=== PATIENT | female | born 1960 | race Caucasian/White ===

== ENCOUNTER 2017-12-13 13:59 | Emergency (ER) | payer OTHER ==
[~2017-12-13] VITALS: Ht 157.5 cm; Wt 64.9 kg
[2017-12-13 14:28] VITALS: BP 190/100
[2017-12-13] MEDS ORDERED: SERT50TA PO (14:55)
--- NOTE | 2017-12-13 14:55 | PHYS DOC ---
Adult General Chief Complaint Chief Complaint: MEDICATION REFILL [facility] HPI Patient is a 57 year old [f__sex] who presents with [] Review of Systems Review of Systems Constitutional: Denies fever or chills [] Eyes: Denies change in visual acuity, redness, or eye pain [] HENT: Denies nasal congestion or sore throat [] Respiratory: Denies cough or shortness of breath [] Cardiovascular: No additional information not addressed in HPI [] GI: Denies abdominal pain, nausea, vomiting, bloody stools or diarrhea [] : Denies dysuria or hematuria [] Musculoskeletal: Denies back pain or joint pain [] Integument: Denies rash or skin lesions [] Neurologic: Denies headache, focal weakness or sensory changes [] Endocrine: Denies polyuria or polydipsia [] All other systems were reviewed and found to be within normal limits, except as documented in this note. Current Medications Current Medications Current Medications Medications (Trade) Dose Ordered Sig/Ga Start Time Stop Time Status Last Admin Dose Admin Sertraline HCl (Zoloft) 50 mg 1X ONCE 12/13/17 14:45 12/13/17 14:46 UNV Allergies Allergies Allergies Coded Allergies Type Severity Reaction Last Updated Verified morphine Allergy Unknown Itching 12/13/17 Yes Physical Exam Physical Exam Constitutional: Well developed, well nourished, no acute distress, non-toxic appearance. [] HENT: Normocephalic, atraumatic, bilateral external ears normal, oropharynx moist, no oral exudates, nose normal. [] Eyes: PERRLA, EOMI, conjunctiva normal, no discharge. [] Neck: Normal range of motion, no tenderness, supple, no stridor. [] Cardiovascular:Heart rate regular rhythm, no murmur [] Lungs & Thorax: Bilateral breath sounds clear to auscultation [] Abdomen: Bowel sounds normal, soft, no tenderness, no masses, no pulsatile masses. [] Skin: Warm, dry, no erythema, no rash. [] Back: No tenderness, no CVA tenderness. [] Extremities: No tenderness, no cyanosis, no clubbing, ROM intact, no edema. [] Neurologic: Alert and oriented X 3, normal motor function, normal sensory function, no focal deficits noted. [] Psychologic: Affect normal, judgement normal, mood normal. [] EKG EKG [] Radiology/Procedures Radiology/Procedures [] Course & Med Decision Making Course & Med Decision Making Pertinent Labs and Imaging studies reviewed. (See chart for details) [] Dragon Disclaimer Dragon Disclaimer This electronic medical record was generated, in whole or in part, using a voice recognition dictation system. Departure Departure Impression: Primary Impression: Withdrawal complaint Additional Impression: Medication refill Disposition: HOME, SELF-CARE Condition: STABLE Referrals: NO PCP (PCP) Patient Instructions: Medication Refill, Emergency Department Scripts Sertraline Hcl (ZOLOFT) 50 Mg Tablet 1 TAB PO DAILY, #30 TAB 0 Refills Take 1 tab (50mg) PO daily x 1 week then increased to 2 tabs (100mg) starting second week. Prov: ADOLPH PIERSON DO 12/13/17 Problem Qualifiers ADOLPH PIERSON DO Dec 13, 2017 14:55
[2017-12-13] MEDS: SERTRALINE 50 MG TABLET. PO ONE (15:33)
== END 2017-12-13 15:33 | disposition home or self-care (01) ==
LOC: ER 13:59
DX: F19.939 Other psychoactive substance use, unspecified with withdrawal, unspecified (principal); Z76.0 Encounter for issue of repeat prescription; Z88.5 Allergy status to narcotic agent
CPT/HCPCS: 99283

== ENCOUNTER → 2017-12-30 | Outpatient (CLI) | payer OTHER ==
[2017-12-13 14:28] VITALS: BP 190/100
[~2017-12-30] MED LIST: SERT50TA PO
[2017-12-30 10:20] LABS: BASO # 0.1 x10^3/uL (0.0-0.2); BASO % 1 % (0-3); EOS # 0.2 x10^3/uL (0.0-0.7); EOS % 2 % (0-3); HEMATOCRIT 41.2 % (36.0-47.0); HEMOGLOBIN 14.1 g/dL (12.0-15.5); LYMPH # 1.9 x10^3/uL (1.0-4.8); LYMPH % 23 % (24-48); MEAN CORPUSCULAR HEMOGLOBIN 30 pg (25-35); MEAN CORPUSCULAR HGB CONC 34 g/dL (31-37); MEAN CORPUSCULAR VOLUME 87 fL (79-100); MONO # 0.4 x10^3/uL (0.0-1.1); MONO % 5 % (0-9); NEUT # 5.6 x10^3uL (1.8-7.7); NEUT % 68 % (31-73); PLATELET COUNT 279 x10^3/uL (140-400); RED BLOOD COUNT 4.71 x10^6/uL (3.50-5.40); RED CELL DISTRIBUTION WIDTH 13.2 % (11.5-14.5); WHITE BLOOD COUNT 8.2 x10^3/uL (4.0-11.0)
[2017-12-30 10:30] LABS: ALBUMIN 4.1 g/dL (3.4-5.0); ALBUMIN/GLOBULIN RATIO 1.2 (1.0-1.7); CALCIUM 9.9 mg/dL (8.5-10.1); CREATININE 0.9 mg/dL (0.6-1.0); GFR 64.8; POTASSIUM 3.5 mmol/L (3.5-5.1); TOTAL BILIRUBIN 0.5 mg/dL (0.2-1.0); TOTAL PROTEIN 7.5 g/dL (6.4-8.2)
[2017-12-30 10:32] LABS: CHOLESTEROL/HDL RATIO 6.3
[2017-12-30 22:13] LABS: HEMOGLOBIN A1C 5.7 % (4.8-5.6)
== END | disposition home or self-care (01) ==
LOC: LAB 09:51
DX: Z13.220 Encounter for screening for lipoid disorders (principal); E03.9 Hypothyroidism, unspecified; E26.9 Hyperaldosteronism, unspecified; R73.03 Prediabetes
CPT/HCPCS: 36415; 80053; 80061; 82043; 83036; 84443; 85025

== ENCOUNTER → 2018-01-10 | Outpatient (CLI) | payer OTHER ==
[2017-12-13 14:28] VITALS: BP 190/100
== END | disposition home or self-care (01) ==
LOC: LAB 10:52
PROVIDERS: ATTEND Internal Medicine Hematology & Oncology
DX: C18.9 Malignant neoplasm of colon, unspecified (principal); C78.7 Secondary malignant neoplasm of liver and intrahepatic bile duct
CPT/HCPCS: 36415; 82378

== ENCOUNTER → 2018-03-14 | Day surgery (SDC) | payer OTHER ==
[~2018-03-14] MED LIST changes: +ATOR20TA58 PO; +ESOM20CA PO; +IV RINGERS,LACTATED 1000ML 1,000 ML IV SCH; +LEVO75TA5 PO; +LIDOCAINE 1% PF 2 ML VIAL. ID PRN; +METF500T9 PO; +METO25TA4 PO; +MIDAZOLAM HCL/PF 2 MG/2 ML VIAL. IV PRN; +PROPOFOL 40 ML IV ONE; +SPIR50TA4 PO; +fentaNYL PF VIAL 100 MCG/2 ML VIAL IV PRN
[2018-03-14 09:55] VITALS: BP 108/73
--- NOTE | 2018-03-14 10:58 | CONS ---
DATE OF CONSULTATION: 03/14/2018 GASTROENTEROLOGY CONSULTATION REFERRING PHYSICIAN: Dr. Dong Velazquez and Pat Lopez. REASON FOR CONSULTATION: History of colon cancer. HISTORY OF PRESENT ILLNESS: This is a 57-year-old female whose past medical history is significant for hyperlipidemia; hypothyroidism; diabetes; hypertension; history of colon cancer, status post resection in 2004 with adjuvant chemotherapy for a liver met, which was resected as well as prior cholecystectomy, heart surgery and tubal ligation, seen for interval colon exam. Bowel habits have been regular, without diarrhea or constipation. There has been no change in her bowel habits and weight and appetite have been stable despite the cancer resection 3 years ago and hepatic resection. She is otherwise without additional complaints. PAST MEDICAL HISTORY: Hypertension, hyperlipidemia, hypothyroidism and diabetes. ALLERGIES: MORPHINE. MEDICATIONS: Include atorvastatin, Nexium, levothyroxine, metformin, metoprolol, sertraline and spironolactone. FAMILY AND SOCIAL HISTORY: She is adopted. She is a nonsmoker, a social drinker. PAST SURGICAL HISTORY: 3 and para 3, status post colon resection and hepatic resection and cardiac ablation. REVIEW OF SYSTEMS: HEENT: There is no decrease in her visual acuity issues. CARDIAC: There is a history of cardiac ablation, hypertension. ENDOCRINE: History of diabetes, hypothyroidism and hyperlipidemia. GASTROINTESTINAL: See history of present illness. HEMATOLOGIC: No bleeding, bruising or coagulopathy. DERMATOLOGIC: No skin rashes or pruritus. PSYCHIATRIC: No mood swings, depression or insomnia. NEUROLOGIC: No stroke, migraine or neuropathy. MUSCULOSKELETAL: History of osteoarthrosis. PHYSICAL EXAMINATION: GENERAL: Reveals a well-nourished, well-developed female. VITAL SIGNS: Temperature is 97.1, pulse 74 and respirations 20. HEENT EXAMINATION: Normocephalic, atraumatic. Pupils and extraocular muscles are not tested. Sclerae anicteric. NECK: Supple. LUNGS: Clear. CARDIOVASCULAR EXAMINATION: Reveals an S1 and S2, without S3, S4 or appreciable murmur. ABDOMEN: Exam reveals a soft abdomen. Normoactive bowel sounds, without appreciable hepatosplenomegaly. EXTREMITIES: Exam reveals no cyanosis, clubbing or edema. IMPRESSION: History of colon cancer. Surveillance exam is recommended at this time. Risks and benefits of the procedure were discussed with the patient, including the risk of hemorrhage or perforation. She is willing to proceed. I would like to thank Dr. Velazquez and Pat Lopez for allowing us to consult and participate in the patient's care. DAHLIA HOPE MD DR: DONAVON/cora JOB#: [id number] / [id number] Pat Santizo VINAY MD
--- NOTE | 2018-03-17 15:09 | PATHOLOGY ---
[facility] Accession Number: [id number] . 01 Material submitted: . PART A: ASCENDING COLON POLYPECTOMY PART B: CECUM MASS BIOPSIES . 01 Clinical history: . Hx colon cancer . 02 Diagnosis: A. Colon biopsies, ascending colon polyp: - Tubular adenoma. . B. Colon biopsies, cecal mass: - Tubulovillous adenoma showing focal high-grade dysplasia. See comment. (JPM:juliann; 03/17/2018) QMS/03/17/2018 . 02 Comment: Sections of the ascending colon biopsy reveal a tubular adenoma showing no high-grade dysplasia or evidence of malignancy. . Sections of the cecal mass biopsy reveal segments of tubulovillous adenoma showing focal high-grade dysplasia. Dysplastic glands are focally associated with a reactive desmoplastic stroma which is suspicious for but not diagnostic of malignancy. . The case is also examined by Dr. Yareli Benedict, who concurs with the diagnosis.The results are reported to Dr. Cornell on 03/17/18. (JPM:juliann; 03/17/2018) . 02 Electronically signed: . Sree Boogie MD, Pathologist NPI- [id number] . 01 Gross description: . A. Received in formalin labeled "Jamila Westbrook, ascending colon polyp," are 3 segments of chavez soft tissue measuring 0.9 x 0.8 x 0.3 cm in aggregate dimensions and ranging from 0.1 to 0.7 cm in maximum dimension. The specimen is submitted entirely in cassette A1. . B. Received in formalin labeled "Jamila Westbrook, cecum mass biopsy," are multiple segments of chavez soft tissue measuring 1.6 x 0.3 x 0.2 cm in aggregate dimensions. The specimen is filtered and entirely submitted in cassette B1. (TSD; 03/14/2018) TOB/TOB . 02 Pathologist provided ICD-10: D12.2, D12.0 . 02 CPT . 573510, 758676 Specimen Comment: A courtesy copy of this report has been sent to Specimen Comment: [phone]. Specimen Comment: Report sent to Performed at: 01 [facility] [address], [place] [id number] MD Jordan Wellington MD Phone: [phone] Performed at: 02 [facility] [address] [place], [place] [id number] MD Sree Boogie MD Phone: [phone]
== END | disposition home or self-care (01) ==
LOC: SURG 07:49
PROVIDERS: ATTEND Internal Medicine Gastroenterology
DX: Z12.11 Encounter for screening for malignant neoplasm of colon (principal); D12.2 Benign neoplasm of ascending colon; D12.0 Benign neoplasm of cecum; K64.0 First degree hemorrhoids; Z88.5 Allergy status to narcotic agent; I10 Essential (primary) hypertension; E78.5 Hyperlipidemia, unspecified; E03.9 Hypothyroidism, unspecified; E11.9 Type 2 diabetes mellitus without complications; Z85.038 Personal history of other malignant neoplasm of large intestine; Z79.899 Other long term (current) drug therapy; Z72.89 Other problems related to lifestyle; Z90.49 Acquired absence of other specified parts of digestive tract; Z98.890 Other specified postprocedural states; Z98.51 Tubal ligation status; Z79.84 Long term (current) use of oral hypoglycemic drugs
CPT/HCPCS: 45380; 45385; 82962; 88305; J2704

== ENCOUNTER → 2018-04-04 | Outpatient (CLI) | payer OTHER ==
[2018-03-14 09:55] VITALS: BP 108/73
[~2018-04-04] MED LIST changes: +IOHEXOL 240 MG/ML 50ML VIAL. PO ONE; +IOHEXOL 300 MG/ML 100ML VIAL. IV ONE; -IV RINGERS,LACTATED 1000ML 1,000 ML IV SCH; -LIDOCAINE 1% PF 2 ML VIAL. ID PRN; -MIDAZOLAM HCL/PF 2 MG/2 ML VIAL. IV PRN; +MULT-245 PO; -PROPOFOL 40 ML IV ONE; +SERT100T PO; -fentaNYL PF VIAL 100 MCG/2 ML VIAL IV PRN
[2018-04-04 09:31] LABS: CREATININE 0.9 mg/dL (0.6-1.0); GFR 64.8
--- NOTE | 2018-04-04 16:19 | RAD ---
CT study of the abdomen and pelvis with contrast Clinical indications: Cecal mass. TECHNIQUE: After IV infusion of 75 cc of Omnipaque 300, helical CT scanning of the abdomen and pelvis was performed. GI contrast was administered per mouth. PQRS compliance Statement One or more of the following individualized dose reduction techniques were utilized for this study: 1. Automated exposure control 2. Adjustment of the mA and/or kV according to patient size 3. Use of iterative reconstruction technique COMPARISON: None available. FINDINGS: Resection of the right lobe liver is seen. The rest of the liver is unremarkable. Spleen is not enlarged. Pancreas is unremarkable. No biliary ductal dilatation is seen. The gallbladder is surgically absent. No adrenal mass is seen. Bilateral renal cysts are seen. No hydronephrosis or hydroureter is evident on either side. Urinary bladder is not abnormally distended. No focal aneurysmal dilatation of the abdominal aorta is seen. No enlarged abdominal or pelvic lymphadenopathy is seen. Bilateral ovarian cysts are seen. Cyst of the left ovary measures 1.6 cm in size. Cyst of the right ovary measures 3.2 cm in size. No uterine mass or fibroid is seen. A low anastomosis of the rectal region is seen. No inflammatory change or free fluid or abscess is seen here. No mesenteric edema or free fluid or free air is seen throughout the abdomen. There is diffuse wall thickening of the colon. Lipoma of the ileocecal valve is seen. There is a round filling defect of the medial posterior wall of the cecum which measures 2.9 cm in greatest dimension. No pericolonic extension is seen. Terminal ileum is unremarkable. No obstructive bowel pattern is seen. Midline abdominal wall protrusion is evident but the overlying fascia appears intact. No lung base consolidation is evident. Grade 1-2 anterolisthesis of L5-S1 is seen secondary to bilateral spondylolysis of L5. No lytic process is seen. IMPRESSION: 2.9 cm filling defect or mass of the cecum is seen without pericolonic extension. In addition, there is diffuse wall thickening of the colon and rectosigmoid region. This could be due to incomplete distention or colitis. Surgical resection of the right lobe of the liver. Rest of the liver is unremarkable. Bilateral ovarian cysts. Bilateral spondylolysis of L5 resulting in grade 1-2 anterolisthesis of L5-S1. Electronically signed by: Ignacio Trevizo MD (04/04/2018 4:14 PM) [place] [id number]
== END | disposition home or self-care (01) ==
LOC: CT 08:39
PROVIDERS: ATTEND Internal Medicine Gastroenterology
DX: K63.89 Other specified diseases of intestine (principal); N83.202 Unspecified ovarian cyst, left side; N83.201 Unspecified ovarian cyst, right side; M43.17 Spondylolisthesis, lumbosacral region; N28.1 Cyst of kidney, acquired; R93.3 Abnormal findings on diagnostic imaging of other parts of digestive tract
CPT/HCPCS: 36415; 74177; 82565; Q9966; Q9967

== ENCOUNTER → 2018-04-07 | Outpatient (CLI) | payer OTHER ==
[2018-03-14 09:55] VITALS: BP 108/73
[~2018-04-07] MED LIST changes: -IOHEXOL 240 MG/ML 50ML VIAL. PO ONE; -IOHEXOL 300 MG/ML 100ML VIAL. IV ONE
[2018-04-07 12:18] LABS: BASO # 0.1 x10^3/uL (0.0-0.2); BASO % 1 % (0-3); EOS # 0.2 x10^3/uL (0.0-0.7); EOS % 3 % (0-3); HEMATOCRIT 38.6 % (36.0-47.0); HEMOGLOBIN 13.2 g/dL (12.0-15.5); LYMPH # 2.4 x10^3/uL (1.0-4.8); LYMPH % 31 % (24-48); MEAN CORPUSCULAR HEMOGLOBIN 30 pg (25-35); MEAN CORPUSCULAR HGB CONC 34 g/dL (31-37); MEAN CORPUSCULAR VOLUME 87 fL (79-100); MONO # 0.5 x10^3/uL (0.0-1.1); MONO % 6 % (0-9); NEUT # 4.5 x10^3uL (1.8-7.7); NEUT % 59 % (31-73); PLATELET COUNT 277 x10^3/uL (140-400); RED BLOOD COUNT 4.42 x10^6/uL (3.50-5.40); RED CELL DISTRIBUTION WIDTH 13.5 % (11.5-14.5); WHITE BLOOD COUNT 7.8 x10^3/uL (4.0-11.0)
[2018-04-07 12:41] LABS: ALBUMIN 3.9 g/dL (3.4-5.0); CALCIUM 9.9 mg/dL (8.5-10.1); CREATININE 0.9 mg/dL (0.6-1.0); GFR 64.8; POTASSIUM 3.7 mmol/L (3.5-5.1)
== END | disposition home or self-care (01) ==
LOC: SURGPAT 11:30
PROVIDERS: ATTEND Surgery
DX: Z01.818 Encounter for other preprocedural examination (principal); K63.89 Other specified diseases of intestine
CPT/HCPCS: 36415; 80048; 82040; 85025

== ENCOUNTER → 2018-05-08 | Outpatient (CLI) | payer OTHER ==
[2018-04-17 11:00] VITALS: BP 116/77
[2018-05-08 15:22] LABS: BASO % 1 % (0-3); EOS # 0.3 x10^3/uL (0.0-0.7); EOS % 3 % (0-3); HEMATOCRIT 38.6 % (36.0-47.0); HEMOGLOBIN 12.9 g/dL (12.0-15.5); LYMPH # 2.7 x10^3/uL (1.0-4.8); LYMPH % 27 % (24-48); MEAN CORPUSCULAR HEMOGLOBIN 29 pg (25-35); MEAN CORPUSCULAR HGB CONC 34 g/dL (31-37); MEAN CORPUSCULAR VOLUME 86 fL (79-100); MONO # 0.7 x10^3/uL (0.0-1.1); MONO % 7 % (0-9); NEUT # 6.3 x10^3uL (1.8-7.7); NEUT % 63 % (31-73); PLATELET COUNT 431 x10^3/uL (140-400); RED BLOOD COUNT 4.48 x10^6/uL (3.50-5.40); RED CELL DISTRIBUTION WIDTH 13.3 % (11.5-14.5)
[2018-05-08 15:53] LABS: CALCIUM 9.5 mg/dL (8.5-10.1); CREATININE 0.9 mg/dL (0.6-1.0); GFR 64.5; TOTAL BILIRUBIN 0.5 mg/dL (0.2-1.0); TOTAL PROTEIN 8.1 g/dL (6.4-8.2)
[2018-05-08 16:05] LABS: POTASSIUM 2.5 mmol/L (3.5-5.1)
== END | disposition home or self-care (01) ==
LOC: LAB 14:57
PROVIDERS: ATTEND Internal Medicine Hematology & Oncology
DX: C18.8 Malignant neoplasm of overlapping sites of colon (principal)
CPT/HCPCS: 36415; 80053; 82378; 85025

== ENCOUNTER 2018-09-22 07:27 | Emergency (ER) | payer OTHER ==
[~2018-09-22] VITALS: Ht 157.5 cm; Wt 58.1 kg
[2018-09-22 07:30] VITALS: BP 144/82
[2018-09-22] MEDS ORDERED: IBUPROFEN 200 MG TABLET. PO ONE (07:45)
--- NOTE | 2018-09-22 07:57 | PHYS DOC ---
Past Medical History Past Medical History: Cancer Additional Past Medical Histor: HYPERALDOSTERONISM, TACHYCARDIA, PREDIABETIC Past Surgical History: Cancer Surgery, Cholecystectomy, Tubal ligation Additional Past Surgical Histo: LIVER AND COLON RESECTION, COLOSTOMY AND REVERSAL Alcohol Use: None Drug Use: None Adult General Chief Complaint Chief Complaint: MECHANICAL FALL HPI HPI Patient is a 58 year old female who presents with complaining of a fall. 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 Patient complaining of pain in right wrist and left knee and accepted the pain 07/18. Patient denies focal neuro deficit, nausea and vomiting, dizziness. Patient is up-to-date with tetanus immunization. Review of Systems Review of Systems Constitutional: Denies fever or chills [] Eyes: Denies change in visual acuity, redness, or eye pain [] HENT: Denies nasal congestion or sore throat [] Respiratory: Denies cough or shortness of breath [] Cardiovascular: No additional information not addressed in HPI [] GI: Denies abdominal pain, nausea, vomiting, bloody stools or diarrhea [] : Denies dysuria or hematuria [] Musculoskeletal: Denies back pain, reports joint pain [] Integument: Denies rash or skin lesions [] Neurologic: Denies headache, focal weakness or sensory changes [] Endocrine: Denies polyuria or polydipsia [] All other systems were reviewed and found to be within normal limits, except as documented in this note. Current Medications Current Medications Current Medications Medications (Trade) Dose Ordered Sig/Ga Start Time Stop Time Status Last Admin Dose Admin Ibuprofen (Motrin) 600 mg 1X ONCE 09/22/18 07:45 09/22/18 07:47 DC 09/22/18 07:51 600 MG Allergies Allergies Allergies Coded Allergies Type Severity Reaction Last Updated Verified morphine Allergy Intermediate Itching 04/14/18 Yes Physical Exam Physical Exam Constitutional: Well developed, well nourished, mild distress, non-toxic appearance. [] HENT: Normocephalic, atraumatic. Eyes: PERRLA, EOMI, conjunctiva normal, no discharge. [] Neck: Normal range of motion, no tenderness, supple, no stridor. [] Cardiovascular:Heart rate regular rhythm, no murmur [] Lungs & Thorax: Bilateral breath sounds clear to auscultation [] Skin: Warm, dry, no erythema, no rash. [] Back: No tenderness, no CVA tenderness. [] Extremities: Right wrist with mild contusion in volar side of volar side of hypothenar area with painful range of motion without edema or deformity, left knee with contusion and erythema without edema or deformity, normal range of motion Neurologic: Alert and oriented X 3, normal motor function, normal sensory function, no focal deficits noted. [] Psychologic: Affect normal, judgement normal, mood normal. [] Current Patient Data Vital Signs Vital Signs Date Time Temp Pulse Resp B/P (MAP) Pulse Ox O2 Delivery O2 Flow Rate FiO2 09/22/18 07:30 98.6 59 16 144/82 (102) 99 Room Air 98.6 EKG EKG [] Radiology/Procedures Radiology/Procedures [][address] [address] IMAGING REPORT Signed PATIENT: BALBIR FELTON ACCOUNT: [id number] : 1960 LOCATION: ER AGE: 58 SEX: F EXAM STATUS: REG ER ORD. PHYSICIAN: JEFFREY GREEN MD REASON: FALL, LEFT KNEE TENDERNESS PROCEDURE: KNEE LEFT 4V Indication:Fall. Left knee tenderness. TECHNIQUE: 3 views of the left knee COMPARISON:None FINDINGS/ impression: No acute fracture or dislocation. No joint effusion. Mild tricompartmental osteoarthritis. Electronically signed by: Landon Higuera DO (09/22/2018 8:11 AM) [facility] DICTATED and SIGNED BY: LANDON HIGUERA DO DATE: 09/22/[address] [id number] IMAGING REPORT Signed PATIENT: BALBIR FELTON ACCOUNT: [id number] : 1960 LOCATION: ER AGE: 58 SEX: F EXAM STATUS: REG ER ORD. PHYSICIAN: JEFFREY GREEN MD REASON: FALL, RIGHT WRIST PAIN PROCEDURE: WRIST 3V RIGHT Indication:Fall. Right wrist pain. TECHNIQUE: 3 views of right wrist COMPARISON: None FINDINGS/ impression: Most likely old fracture of the ulnar styloid process. No acute fracture or dislocation. Soft tissue Edema is seen of the rest. Electronically signed by: Landon Higuera DO (09/22/2018 8:11 AM) [facility] DICTATED and SIGNED BY: LANDON HIGUERA DO DATE: 09/22/18 0811 Course & Med Decision Making Course & Med Decision Making Pertinent Imaging studies reviewed. (See chart for details) Evaluation of patient in ER showed 58-year-old female patient with a fall at work and injury to right wrist and left knee. X-ray showed old styloid fracture of ulna without acute fracture. Left knee x-ray was unremarkable. Patient treated with ibuprofen in ER and velcro wrist splint and left the Jame wrap was applied. Dragon Disclaimer Dragon Disclaimer This electronic medical record was generated, in whole or in part, using a voice recognition dictation system. Departure Departure Impression: Primary Impression: Right wrist sprain Additional Impression: Left knee sprain Disposition: 01 HOME, SELF-CARE (@0835) Condition: IMPROVED Referrals: LISA DICKERSON BUSINESS SALES CONSULTANT (PCP) Patient Instructions: Knee Sprain, Wrist Sprain with [facility] Additional Instructions: Drink plenty of liquids Follow-up with your primary care physician in 3-5 days Return to ER if not getting better Apply ice on the affected area Take Tylenol or ibuprofen as needed for pain Problem Qualifiers Primary Impression: Right wrist sprain Encounter type: initial encounter Qualified Codes: S63.501A - Unspecified sprain of right wrist, initial encounter Additional Impression: Left knee sprain Encounter type: initial encounter Involved ligament of knee: unspecified ligament Qualified Codes: S83.92XA - Sprain of unspecified site of left knee, initial encounter JEFFREY GREEN MD Sep 22, 2018 07:57
--- NOTE | 2018-09-22 08:14 | RAD ---
Indication:Fall. Right wrist pain. TECHNIQUE: 3 views of right wrist COMPARISON: None FINDINGS/ impression: Most likely old fracture of the ulnar styloid process. No acute fracture or dislocation. Soft tissue Edema is seen of the rest. Electronically signed by: Landon Higuera DO (09/22/2018 8:11 AM) [facility]
--- NOTE | 2018-09-22 08:14 | RAD ---
Indication:Fall. Left knee tenderness. TECHNIQUE: 3 views of the left knee COMPARISON:None FINDINGS/ impression: No acute fracture or dislocation. No joint effusion. Mild tricompartmental osteoarthritis. Electronically signed by: Landon Higuera DO (09/22/2018 8:11 AM) [facility]
== END 2018-09-22 08:35 | disposition home or self-care (01) ==
LOC: ER 07:27
DX: S63.501A Unspecified sprain of right wrist, initial encounter (principal); S83.92XA Sprain of unspecified site of left knee, initial encounter; Z88.5 Allergy status to narcotic agent; W01.0XXA Fall on same level from slipping, tripping and stumbling without subsequent striking against object, initial encounter; Y93.89 Activity, other specified; Y92.89 Other specified places as the place of occurrence of the external cause; Y99.8 Other external cause status
CPT/HCPCS: 29125; 73110; 73564; 99284

== ENCOUNTER → 2018-10-08 | Outpatient (CLI) | payer OTHER ==
[2018-09-22 07:30] VITALS: BP 144/82
[2018-10-08 10:38] LABS: BASO # 0.1 x10^3/uL (0.0-0.2); BASO % 1 % (0-3); EOS # 0.2 x10^3/uL (0.0-0.7); EOS % 2 % (0-3); HEMATOCRIT 37.4 % (36.0-47.0); HEMOGLOBIN 12.7 g/dL (12.0-15.5); LYMPH # 2.2 x10^3/uL (1.0-4.8); LYMPH % 26 % (24-48); MEAN CORPUSCULAR HEMOGLOBIN 30 pg (25-35); MEAN CORPUSCULAR HGB CONC 34 g/dL (31-37); MEAN CORPUSCULAR VOLUME 89 fL (79-100); MONO # 0.5 x10^3/uL (0.0-1.1); MONO % 6 % (0-9); NEUT # 5.5 x10^3/uL (1.8-7.7); NEUT % 66 % (31-73); PLATELET COUNT 263 x10^3/uL (140-400); RED BLOOD COUNT 4.22 x10^6/uL (3.50-5.40); RED CELL DISTRIBUTION WIDTH 14.1 % (11.5-14.5); WHITE BLOOD COUNT 8.4 x10^3/uL (4.0-11.0)
[2018-10-08 11:18] LABS: ALBUMIN 3.6 g/dL (3.4-5.0); CALCIUM 8.8 mg/dL (8.5-10.1); CREATININE 0.9 mg/dL (0.6-1.0); TOTAL PROTEIN 7.3 g/dL (6.4-8.2)
[2018-10-08 11:19] LABS: CHOLESTEROL/HDL RATIO 4.1; GFR 64.5; POTASSIUM 3.7 mmol/L (3.5-5.1); TOTAL BILIRUBIN 0.4 mg/dL (0.2-1.0)
== END | disposition home or self-care (01) ==
LOC: LAB 10:03
PROVIDERS: ATTEND Nurse Practitioner Family
DX: E78.5 Hyperlipidemia, unspecified (principal)
CPT/HCPCS: 36415; 80053; 80061; 84443; 85025

== ENCOUNTER → 2018-10-08 | Outpatient (CLI) | payer OTHER ==
[2018-09-22 07:30] VITALS: BP 144/82
--- NOTE | 2018-10-08 11:58 | RAD ---
DATE: October 08, 2018 EXAM: MAMMO WAYNE SCREENING BILATERAL HISTORY: Screening study. COMPARISON: March 29, 2016 This study was interpreted with the benefit of Computerized Aided Detection (CAD). 2-D digital mammographic views of both breasts were performed in the CC and MLO projections. 3-D digital tomosynthesis images of both breasts were performed in the CC and MLO projections and reviewed on a computer workstation. FINDINGS: Breast Density: SCATTERED The breast parenchyma shows scattered fibroglandular densities. Breast parenchyma level B.. There are no dominant suspicious masses, suspicious microcalcifications or evidence of architectural distortion. Bilateral breast nodularity is stable. IMPRESSION: No mammographic indicators for malignancy. BI-RADS CATEGORY: 2 BENIGN FINDING RECOMMENDED FOLLOW-UP: 12M 12 MONTH FOLLOW-UP PQRS compliance statement: Patient information was entered into a reminder system with a target due date October 10, 2019 for the next mammogram. Mammography is a sensitive method for finding small breast cancers, but it does not detect them all and is not a substitute for careful clinical examination. A negative mammogram does not negate a clinically suspicious finding and should not result in delay in biopsying a clinically suspicious abnormality. "Our facility is accredited by the [employer] Mammography Program." The patient's breast density may affect the ability of mammography to detect breast cancer. There are 4 categories of breast density, A, B, C and D. Breast density A means that most of the breast tissue is replaced with adipose tissue and therefore is not dense. Breast density B means that the breast tissue is mildly dense and scattered. Breast density C means that the breast tissue is heterogeneously dense. Breast density D means that the breast tissue is very dense. Breast densities especially C and D may decrease the sensitivity of mammography to detect breast cancer. Therefore, the patient may benefit from 3-D breast mammography (3D breast tomography) as a part of their screening mammogram. Insurance may or may not pay for this additional imaging. The patient's breast density based on today's mammogram is category B.
== END | disposition home or self-care (01) ==
LOC: LAB 09:55
PROVIDERS: ATTEND Internal Medicine Hematology & Oncology
DX: Z12.31 Encounter for screening mammogram for malignant neoplasm of breast (principal); C18.9 Malignant neoplasm of colon, unspecified; C78.7 Secondary malignant neoplasm of liver and intrahepatic bile duct
CPT/HCPCS: 77063; 77067; 82378

== ENCOUNTER → 2018-10-15 | Outpatient (CLI) | payer OTHER ==
[2018-09-22 07:30] VITALS: BP 144/82
[~2018-10-15] MED LIST changes: +METF500T11 PO; -METF500T9 PO
== END | disposition home or self-care (01) ==
LOC: SPEC 14:47
PROVIDERS: ATTEND Nurse Practitioner Family
DX: Z12.4 Encounter for screening for malignant neoplasm of cervix (principal)
CPT/HCPCS: 88175

== ENCOUNTER → 2019-04-10 | Day surgery (SDC) | payer OTHER ==
[~2019-04-10] MED LIST changes: +IV RINGERS,LACTATED 1000ML 1,000 ML IV ONE; +LIDOCAINE 2% PF 5 ML VIAL. ONE; +PANT40TA77 PO; +PROPOFOL 20 ML IV ONE
--- NOTE | 2019-04-10 08:21 | HP ---
ADMIT DATE: REASON: History of cecal polyp with high-grade dysplasia/cancer and recurrent diarrhea. HISTORY OF PRESENT ILLNESS: A 58-year-old female with past medical history significant for hypothyroidism, hypertension, gastroesophageal reflux disease as well as colon cancer, is seen for interval colonoscopy. She does relate having persistent diarrhea despite pancreatic enzymes, on bile acid sequestrant therapy and Xifaxan. Biopsies were requested to further assess the diarrhea at the time of the interval colon exam. PAST MEDICAL HISTORY: Colon cancer, GERD, hypothyroidism and hypertension. ALLERGIES: MORPHINE. MEDICATIONS: Include levothyroxine, metoprolol, multivitamin, pantoprazole, Zoloft, and spironolactone. SOCIAL HISTORY: She is a nonsmoker, social drinker. PAST SURGICAL HISTORY: Status post tubal ligation, cecal resection, cholecystectomy and hernia repair. REVIEW OF SYSTEMS: Per records. PHYSICAL EXAMINATION: GENERAL: Reveals a well-nourished, well-developed female who is alert, cooperative, in no acute distress. VITAL SIGNS: Temperature 98.1, pulse 75, respirations 20. LUNGS: Clear. CARDIOVASCULAR: Reveals an S1, S2 without S3, S4 or appreciable murmur. ABDOMEN: Reveals a soft abdomen, normal bowel sounds, without appreciable hepatosplenomegaly. Multiple surgical incisions. EXTREMITIES: Reveals no cyanosis, clubbing or edema. IMPRESSION: Diarrhea, status post colon cancer resection, unresponsive to bile acid sequestrant therapy, pancreatic enzymes and Xifaxan. Collagenous and/or inflammatory colitis certainly are in the differential; therefore, recommend biopsies. Risks and benefits of procedure including risk of hemorrhage and perforation requiring operation were discussed. The patient is willing to proceed at this time. DAHLIA HOPE MD DR: DONAVON/cora JOB#: [id number] / [id number]
[2019-04-10 08:31] VITALS: BP 125/79
--- NOTE | 2019-04-13 15:07 | PATHOLOGY ---
[facility] Accession Number: [id number] . 01 Material submitted: . colon - RANDOM COLON BIOPSIES . 01 Clinical history: . History of colon cancer . 02 Diagnosis: Colonic mucosa, random colon biopsies: - No significant pathologic abnormalities. (JPM:[facility] 04/13/2019) [facility] 04/13/2019 0920 Local . 02 Comment: Sections of the random colon biopsy reveal multiple segments of colonic mucosa showing focal reactive superficial epithelial hyperplastic changes. There are a few mucosal-associated lymphoid aggregates. There is no evidence of a chronic destructive colitis, lymphocytic colitis, or collagenous colitis. (JPM:[facility] 04/13/2019) . 02 Electronically signed: . Sree Boogie MD, Pathologist NPI- [id number] . 01 Gross description: . The specimen is received in formalin, labeled "Jamila Dariana, random colon biopsies". Received are multiple (greater than 10) segments of pale chavez soft tissue ranging in size from 0.2 to 0.7 cm in maximum dimensions. The specimen is submitted entirely in cassette A1. (CAA; 04/10/2019) QAC/QAC 04/10/2019 1730 Local . 02 Pathologist provided ICD-10: Z12.11, Z85.038 . 02 CPT . 805133 Specimen Comment: A courtesy copy of this report has been sent to [phone] Specimen Comment: Report sent to Specimen Comment: A duplicate report has been generated due to demographic updates. Performed at: 01 [facility] [address], [place] [id number] MD Jordan Wellington MD Phone: [phone] Performed at: 02 [facility] [address] [place], [place] [id number] MD Sree Boogie MD Phone: [phone]
== END | disposition home or self-care (01) ==
LOC: ENDOS 06:46
PROVIDERS: ATTEND Internal Medicine Gastroenterology
DX: R19.7 Diarrhea, unspecified (principal); K64.0 First degree hemorrhoids; K63.89 Other specified diseases of intestine; K21.9 Gastro-esophageal reflux disease without esophagitis; E03.9 Hypothyroidism, unspecified; I10 Essential (primary) hypertension; Z88.8 Allergy status to other drugs, medicaments and biological substances; Z79.899 Other long term (current) drug therapy; Z98.51 Tubal ligation status; Z90.49 Acquired absence of other specified parts of digestive tract; Z85.068 Personal history of other malignant neoplasm of small intestine
CPT/HCPCS: 45380; 88305; J2001; J2704

== ENCOUNTER → 2019-08-21 | Outpatient (CLI) | payer OTHER ==
[2019-04-10 08:31] VITALS: BP 125/79
[~2019-08-21] MED LIST changes: -IV RINGERS,LACTATED 1000ML 1,000 ML IV ONE; -LIDOCAINE 2% PF 5 ML VIAL. ONE; +METF-658 PO; -METF500T11 PO; -PROPOFOL 20 ML IV ONE
--- NOTE | 2019-08-21 17:11 | RAD ---
RIGHT HAND, VIEWS 3 Indication: Prolonged pain on 1st digit and wrist, no injury Findings: There is no acute fracture or dislocation. Bony articulations are normal. There is no bony erosion. Tiny well-corticated bone fragment at the tip of the ulnar styloid could be due to old injury. Punctate ossific densities of the third and fifth DIP joints are likely incidental. Mineralization is normal. There is no radiographically apparent soft tissue swelling or radiopaque foreign body. IMPRESSION: No acute bone abnormality. Electronically signed by: Steven Montesinos MD (08/21/2019 5:08 PM) [facility]
== END | disposition home or self-care (01) ==
LOC: RAD 16:31
PROVIDERS: ATTEND Internal Medicine
DX: S63.641A Sprain of metacarpophalangeal joint of right thumb, initial encounter (principal); X58.XXXA Exposure to other specified factors, initial encounter; Y93.89 Activity, other specified; Y92.89 Other specified places as the place of occurrence of the external cause; Y99.8 Other external cause status
CPT/HCPCS: 73130

== ENCOUNTER → 2019-09-24 | Outpatient (CLI) | payer OTHER ==
[2019-04-10 08:31] VITALS: BP 125/79
== END | disposition home or self-care (01) ==
LOC: LAB 13:35
PROVIDERS: ATTEND Internal Medicine Pulmonary Disease
DX: Z20.828 Contact with and (suspected) exposure to other viral communicable diseases (principal)
CPT/HCPCS: C9803; U0003

== ENCOUNTER → 2019-10-16 | Outpatient (CLI) | payer OTHER ==
[2019-04-10 08:31] VITALS: BP 125/79
[2019-10-16 11:46] LABS: BASO # 0.1 x10^3/uL (0.0-0.2); BASO % 1 % (0-3); EOS # 0.2 x10^3/uL (0.0-0.7); EOS % 2 % (0-3); HEMATOCRIT 41.3 % (36.0-47.0); HEMOGLOBIN 14.3 g/dL (12.0-15.5); LYMPH # 2.3 x10^3/uL (1.0-4.8); LYMPH % 30 % (24-48); MEAN CORPUSCULAR HEMOGLOBIN 31 pg (25-35); MEAN CORPUSCULAR HGB CONC 35 g/dL (31-37); MEAN CORPUSCULAR VOLUME 89 fL (79-100); MONO # 0.5 x10^3/uL (0.0-1.1); MONO % 7 % (0-9); NEUT # 4.5 x10^3/uL (1.8-7.7); NEUT % 60 % (31-73); PLATELET COUNT 297 x10^3/uL (140-400); RED BLOOD COUNT 4.64 x10^6/uL (3.50-5.40); RED CELL DISTRIBUTION WIDTH 12.9 % (11.5-14.5); WHITE BLOOD COUNT 7.6 x10^3/uL (4.0-11.0)
[2019-10-16 11:59] LABS: ALBUMIN 4.4 g/dL (3.4-5.0); ALBUMIN/GLOBULIN RATIO 1.3 (1.0-1.7); CALCIUM 9.3 mg/dL (8.5-10.1); GFR 56.9; TOTAL BILIRUBIN 0.7 mg/dL (0.2-1.0); TOTAL PROTEIN 7.9 g/dL (6.4-8.2)
== END | disposition home or self-care (01) ==
LOC: LAB 11:04
PROVIDERS: ATTEND Internal Medicine Hematology & Oncology
DX: Z85.038 Personal history of other malignant neoplasm of large intestine (principal)
CPT/HCPCS: 80053; 82378; 85025

== ENCOUNTER → 2019-10-16 | Outpatient (CLI) | payer OTHER ==
[2019-04-10 08:31] VITALS: BP 125/79
[2019-10-16 11:41] LABS: BASO # 0.1 x10^3/uL (0.0-0.2); BASO % 1 % (0-3); EOS # 0.2 x10^3/uL (0.0-0.7); EOS % 2 % (0-3); HEMATOCRIT 41.4 % (36.0-47.0); HEMOGLOBIN 14.2 g/dL (12.0-15.5); LYMPH # 2.4 x10^3/uL (1.0-4.8); LYMPH % 32 % (24-48); MEAN CORPUSCULAR HEMOGLOBIN 31 pg (25-35); MEAN CORPUSCULAR HGB CONC 34 g/dL (31-37); MEAN CORPUSCULAR VOLUME 89 fL (79-100); MONO # 0.5 x10^3/uL (0.0-1.1); MONO % 7 % (0-9); NEUT # 4.5 x10^3/uL (1.8-7.7); NEUT % 58 % (31-73); PLATELET COUNT 304 x10^3/uL (140-400); RED BLOOD COUNT 4.64 x10^6/uL (3.50-5.40); RED CELL DISTRIBUTION WIDTH 12.9 % (11.5-14.5); WHITE BLOOD COUNT 7.7 x10^3/uL (4.0-11.0)
[2019-10-16 12:00] LABS: ALBUMIN 4.4 g/dL (3.4-5.0); ALBUMIN/GLOBULIN RATIO 1.1 (1.0-1.7); CALCIUM 9.3 mg/dL (8.5-10.1); GFR 56.9; POTASSIUM 3.8 mmol/L (3.5-5.1); TOTAL BILIRUBIN 0.7 mg/dL (0.2-1.0); TOTAL PROTEIN 8.3 g/dL (6.4-8.2)
[2019-10-16 12:02] LABS: CHOLESTEROL/HDL RATIO 4.2
[2019-10-17 00:09] LABS: HEMOGLOBIN A1C 5.2 % (4.8-5.6)
== END | disposition home or self-care (01) ==
LOC: LAB 11:09
PROVIDERS: ATTEND Nurse Practitioner Family
DX: Z13.1 Encounter for screening for diabetes mellitus (principal); Z13.220 Encounter for screening for lipoid disorders; E03.9 Hypothyroidism, unspecified; I10 Essential (primary) hypertension
CPT/HCPCS: 36415; 80053; 80061; 83036; 84443; 85025

== ENCOUNTER → 2019-11-10 | Outpatient (CLI) | payer OTHER ==
[2019-04-10 08:31] VITALS: BP 125/79
[~2019-11-10] MED LIST changes: +EZET10TA48 PO
== END | disposition home or self-care (01) ==
LOC: LAB 13:43
PROVIDERS: ATTEND Surgery
DX: Z01.812 Encounter for preprocedural laboratory examination (principal); Z20.828 Contact with and (suspected) exposure to other viral communicable diseases; K43.2 Incisional hernia without obstruction or gangrene
CPT/HCPCS: U0003-CS

== ENCOUNTER 2019-11-13 06:02 | Inpatient (IN) | payer OTHER ==
[~2019-11-13] VITALS: Ht 157.5 cm; Wt 63.1 kg
[2019-11-13] VITALS (11 sets, daily range): BP systolic 87–112; BP diastolic 42–69
[~2019-11-13 06:02] MED LIST changes: +ACETAMINOPHEN 500 MG TABLET PO PRN; -EZET10TA48 PO; +ceFAZolin SODIUM IV Push 1 GM VIAL. IVP PRN
[2019-11-13] MEDS ORDERED: ROCURONIUM 50 MG/5 ML VIAL. ONE (06:37)
[2019-11-13] MEDS ORDERED: SUCCINYLCHOLINE 200 MG/10 ML VIAL. ONE (06:37)
[2019-11-13] MEDS ORDERED: ONDANSETRON PF 4 MG/2 ML VIAL. ONE (06:38)
[2019-11-13] MEDS ORDERED: DEXAMETHASONE SOD PHOS 20 MG/5 ML VIAL. ONE (06:38)
[2019-11-13] MEDS ORDERED: LIDOCAINE 2% PF 5 ML VIAL. ONE (06:38)
[2019-11-13] MEDS ORDERED: PROPOFOL 10 MG/ML (20ML) VIAL. IV ONE (06:38)
[2019-11-13] MEDS ORDERED: BUPIVACAINE-EPI 0.5%-1:200000 MPF 30 ML VIAL. ONE (06:52)
[2019-11-13] MEDS ORDERED: MINERAL OIL for SURGERY 10 ML VIAL. MC ONE (06:52)
[2019-11-13] MEDS ORDERED: fentaNYL PF VIAL 100 MCG/2 ML VIAL IV PRN (07:00)
[2019-11-13] MEDS ORDERED: ONDANSETRON PF 4 MG/2 ML VIAL. IV PRN (07:00)
[2019-11-13] MEDS ORDERED: IV RINGERS,LACTATED 1000ML 1,000 ML IV SCH (07:00)
[2019-11-13] MEDS ORDERED: fentaNYL PF VIAL 100 MCG/2 ML VIAL ONE ×3 (07:00→10:59)
[2019-11-13] MEDS ORDERED: PROCHLORPERAZINE 10 MG/2 ML VIAL. IV PRN (07:00)
[2019-11-13] MEDS ORDERED: HYDROmorphone 2 MG/ML VIAL ONE (09:12)
[2019-11-13] MEDS ORDERED: PHENYLEPHRINE in 0.9% NACL PF 1 MG/10 ML SYRINGE. IV ONE (09:18)
[2019-11-13] MEDS ORDERED: ePHEDrine PF IN SALINE 50 MG/10 ML SYRINGE. IV ONE (09:18)
[2019-11-13] MEDS ORDERED: SEVOFLURANE 61 TO 120 MINUTES. IH ONE (09:18)
[2019-11-13] MEDS: IV DEXTROSE 5%-LACT RINGERS 1,000 ML IV SCH ×2 (09:36→22:01)
--- NOTE | 2019-11-13 09:36 | PDOC4 ---
Operative Note Operative Note Date: November 13, 2019 at 09 31 Preoperative diagnosis: Recurrent incisional hernia Postoperative diagnosis: Same Procedure: Robotic assisted laparoscopic lysis of adhesions and repair of small bowel enterotomy with repair of recurrent incisional hernia open Surgeon: Harris Specimen: Hernia sac Dictation: Patient is a 59-year-old female is had multiple abdominal surgeries for colon resection and then a incisional hernia repair with mesh subsequently has developed a recurrence of her hernia with pain and discomfort. Procedure of robotic assisted laparoscopic incisional hernia repair with mesh was explained to the patient detail was benefits were also discussed including bleeding infection injury to intra-abdominal contents possibly necessitating further or open operations alternatives to this procedure are also discussed with the patient who seemed to understand and gave both verbal and written consent to have the procedure performed. Patient was taken to the operating room placed the supine position general anesthesia was initiated once patient was sleeping intubated her abdomen was prepped and draped usual sterile fashion using ChloraPrep. Area in the left upper quadrant was injected quarter percent Marcaine with epinephrine incision was made 11 blade scalpel and a 5 mm Visiport was placed under direct visualization into the abdomen and pneumoperitoneum was achieved once this complete 5 mm port was placed within the abdomen inspected was noted she had multiple and a lot of adhesions to the midline of her anterior abdominal wall. A 8 mm da Bran port was placed in the left midabdomen and a 8 mm da Bran port was placed in the left lower abdomen and the 5 mm Visiport was changed out to a 8 mm da Bran port. The da Bran robot was brought and docked all port sites surgeon went to the robotic console using a grasper and Endo Isaak scissors adhesions were taken down and taking down these adhesions a enterotomy was made in the small bowel this was closed with a 3-0 Vicryl running suture and then oversewn with a 20V lock absorbable suture. Once the whole hernia was visualized it is felt this was too large to be closed laparoscopically surgeon went back to the operative field the da Bran robot was undocked all ports removed midline incision was made with a 10 blade scalpel excising the previous scar is carried down through the subcutaneous tissues electrocautery right hemostasis to the hernia was opened. The skin flaps were made over the top of the fascia with electrocautery this was carried out several centimeters on either side. Most of the mesh previously used for repair was removed. The fascia was then closed with a running #1 looped PDS. Bard polypropylene mesh was then placed over the top of the repair this was sewn in place with a 0 PDS. A 7 Welsh flat AMY drain was placed through the left lower abdominal incision and this was serina in the subcutaneous space. This was sewn in place with a 2-0 silk. The deep subcutaneous layer was closed with a running 2-0 Vicryl and the skin was reapproximated for subcuticular Monocryl Mastisol Steri-Strips and 4 x 4's Medipore tape were applied. The port sites were closed for subcuticular Monocryl Mastisol Steri-Strips and island dressings. Patient was awakened and extubated in the operating room taken to recovery in stable condition all sponge instrument needle counts listed as correct estimated blood loss 10 mL NAVYA CHAMBERLAIN MD Nov 13, 2019 09:36
[2019-11-13] MEDS ORDERED: MORPHINE SULFATE 2 MG/ML VIAL. IV PRN (09:45)
[2019-11-13] MEDS ORDERED: 0.9 % SODIUM CHLORIDE 10 ML DISP.SYRIN. IV PRN (09:45)
[2019-11-13] MEDS ORDERED: oxyCODONE/APAP 5/325 1 TAB TABLET PO PRN (09:45)
[2019-11-13] MEDS: fentaNYL PF VIAL 100 MCG/2 ML VIAL IV PRN ×2 (11:06→12:00)
[2019-11-13] MEDS: KETOROLAC 15 MG/ML VIAL. IV SCH ×3 (12:00→23:44)
[2019-11-13] MEDS ORDERED: EZET10TA48 PO (15:50)
[2019-11-13] MEDS: cefOXitin SODIUM IV Push 1 GM VIAL. IVP SCH ×2 (16:05→23:44)
[2019-11-13] MEDS: HYDROmorphone 2 MG/ML VIAL IVP PRN ×2 (16:06→22:04)
[2019-11-13] MEDS: METOPROLOL TART IMMED RELEASE 25 MG TABLET. PO SCH (18:05)
[2019-11-13] MEDS: oxyCODONE/APAP 5/325 1 TAB TABLET PO PRN (19:51)
[2019-11-14 03:00] VITALS: BP 99/60
[2019-11-14] MEDS: oxyCODONE/APAP 5/325 1 TAB TABLET PO PRN (04:11)
[2019-11-14 04:16] LABS: BASO # 0.1 x10^3/uL (0.0-0.2); BASO % 1 % (0-3); EOS # 0.1 x10^3/uL (0.0-0.7); EOS % 1 % (0-3); HEMATOCRIT 32.4 % (36.0-47.0); HEMOGLOBIN 11.1 g/dL (12.0-15.5); LYMPH # 1.8 x10^3/uL (1.0-4.8); LYMPH % 20 % (24-48); MEAN CORPUSCULAR HEMOGLOBIN 31 pg (25-35); MEAN CORPUSCULAR HGB CONC 34 g/dL (31-37); MEAN CORPUSCULAR VOLUME 90 fL (79-100); MONO # 0.7 x10^3/uL (0.0-1.1); MONO % 8 % (0-9); NEUT # 6.1 x10^3/uL (1.8-7.7); NEUT % 70 % (31-73); PLATELET COUNT 195 x10^3/uL (140-400); RED BLOOD COUNT 3.62 x10^6/uL (3.50-5.40); RED CELL DISTRIBUTION WIDTH 12.8 % (11.5-14.5); WHITE BLOOD COUNT 8.8 x10^3/uL (4.0-11.0)
[2019-11-14] MEDS: ONDANSETRON PF 4 MG/2 ML VIAL. IV PRN ×3 (04:35→17:04)
[2019-11-14] MEDS: HYDROmorphone 2 MG/ML VIAL IVP PRN ×3 (04:54→20:55)
[2019-11-14] MEDS: KETOROLAC 15 MG/ML VIAL. IV SCH ×3 (06:05→17:19)
[2019-11-14 07:00] VITALS: BP 111/61
--- NOTE | 2019-11-14 08:48 | PDOC ---
SURGICAL PROGRESS NOTE DATE: 11/14/19 TIME: 08:46 Subjective Patient feeling better this morning did have an episode of emesis last night denies any nausea this morning has not passed flatus Vital Signs Vital Signs Date Time Temp Pulse Resp B/P (MAP) Pulse Ox O2 Delivery O2 Flow Rate FiO2 11/14/19 07:00 98.0 73 18 111/61 (78) 95 Room Air 98.0 11/13/19 18:06 8.0 I&O Intake and Output 11/14/19 07:00 Intake Total 2200 ml Output Total 100 ml Balance 2100 ml Intake Oral 1100 ml IV Total 1100 ml Output Urine Total 0 ml Drainage Total 70 ml Estimated Blood Loss 30 ml PATIENT HAS A ZAPATA: No General: Alert, Oriented X3, Cooperative, mild distress Abdomen: Normal bowel sounds, Soft, Other (Mild incisional tenderness AMY drains intact with serosanguineous output wounds clean dry and intact) Labs Laboratory Tests Test 11/14/19 03:45 White Blood Count 8.8 x10^3/uL (4.0-11.0) Red Blood Count 3.62 x10^6/uL (3.50-5.40) Hemoglobin 11.1 g/dL (12.0-15.5) Hematocrit 32.4 % (36.0-47.0) Mean Corpuscular Volume 90 fL (79-100) Mean Corpuscular Hemoglobin 31 pg (25-35) Mean Corpuscular Hemoglobin Concent 34 g/dL (31-37) Red Cell Distribution Width 12.8 % (11.5-14.5) Platelet Count 195 x10^3/uL (140-400) Neutrophils (%) (Auto) 70 % (31-73) Lymphocytes (%) (Auto) 20 % (24-48) Monocytes (%) (Auto) 8 % (0-9) Eosinophils (%) (Auto) 1 % (0-3) Basophils (%) (Auto) 1 % (0-3) Neutrophils # (Auto) 6.1 x10^3/uL (1.8-7.7) Lymphocytes # (Auto) 1.8 x10^3/uL (1.0-4.8) Monocytes # (Auto) 0.7 x10^3/uL (0.0-1.1) Eosinophils # (Auto) 0.1 x10^3/uL (0.0-0.7) Basophils # (Auto) 0.1 x10^3/uL (0.0-0.2) Laboratory Tests Test 11/14/19 03:45 White Blood Count 8.8 x10^3/uL (4.0-11.0) Red Blood Count 3.62 x10^6/uL (3.50-5.40) Hemoglobin 11.1 g/dL (12.0-15.5) Hematocrit 32.4 % (36.0-47.0) Mean Corpuscular Volume 90 fL (79-100) Mean Corpuscular Hemoglobin 31 pg (25-35) Mean Corpuscular Hemoglobin Concent 34 g/dL (31-37) Red Cell Distribution Width 12.8 % (11.5-14.5) Platelet Count 195 x10^3/uL (140-400) Neutrophils (%) (Auto) 70 % (31-73) Lymphocytes (%) (Auto) 20 % (24-48) Monocytes (%) (Auto) 8 % (0-9) Eosinophils (%) (Auto) 1 % (0-3) Basophils (%) (Auto) 1 % (0-3) Neutrophils # (Auto) 6.1 x10^3/uL (1.8-7.7) Lymphocytes # (Auto) 1.8 x10^3/uL (1.0-4.8) Monocytes # (Auto) 0.7 x10^3/uL (0.0-1.1) Eosinophils # (Auto) 0.1 x10^3/uL (0.0-0.7) Basophils # (Auto) 0.1 x10^3/uL (0.0-0.2) Assessment/Plan Status post ventral incisional hernia repair with repair of enterotomy. Awaiting return of bowel function Justicifation of Admission Dx: Justifications for Admission: Justification of Admission Dx: N/A NAVYA CHAMBERLAIN MD Nov 14, 2019 08:48
[2019-11-14] MEDS: METOPROLOL TART IMMED RELEASE 25 MG TABLET. PO SCH ×2 (10:42→20:58)
[2019-11-14] MEDS: PANTOPRAZOLE 40 MG TABLET.DR. PO SCH (10:42)
[2019-11-14] MEDS: SPIRONOLACTONE 25 MG TABLET PO SCH (10:42)
[2019-11-14] MEDS: SERTRALINE 50 MG TABLET. PO SCH (10:43)
[2019-11-14] MEDS: MULTIVITAMIN with MINERAL TABLET. PO SCH (10:43)
[2019-11-14] MEDS: EZETIMIBE 10 MG TABLET. PO SCH (10:44)
[2019-11-14] MEDS: cefOXitin SODIUM IV Push 1 GM VIAL. IVP SCH (10:45)
[2019-11-14] MEDS: LEVOTHYROXINE 75 MCG TABLET PO SCH (10:46)
[2019-11-14 11:19] VITALS: BP 137/72
[2019-11-14] MEDS: IV DEXTROSE 5%-LACT RINGERS 1,000 ML IV SCH (12:47)
[2019-11-14 15:05] VITALS: BP 125/60
[2019-11-14 19:00] VITALS: BP 159/80
[2019-11-14 23:00] VITALS: BP 126/73
[2019-11-15] MEDS: IV DEXTROSE 5%-LACT RINGERS 1,000 ML IV SCH (01:09)
[2019-11-15] MEDS: KETOROLAC 15 MG/ML VIAL. IV SCH ×2 (01:09→05:50)
[2019-11-15] MEDS: ONDANSETRON PF 4 MG/2 ML VIAL. IV PRN (01:14)
[2019-11-15 03:00] VITALS: BP 107/67
[2019-11-15 07:26] VITALS: BP 120/68
--- NOTE | 2019-11-15 08:17 | PDOC ---
SURGICAL PROGRESS NOTE DATE: 11/15/19 TIME: 08:16 Subjective Patient feeling much better this morning did have some episodes of nausea after taking Percocet last evening tolerating clear liquids Vital Signs Vital Signs Date Time Temp Pulse Resp B/P (MAP) Pulse Ox O2 Delivery O2 Flow Rate FiO2 11/15/19 07:26 98.5 72 18 120/68 (85) 96 Room Air 98.5 I&O Intake and Output 11/15/19 07:00 Intake Total 840 ml Output Total 1150 ml Balance -310 ml Intake Oral 840 ml Output Urine Total 1000 ml Emesis 150 ml # Voids 6 # Bowel Movements 1 PATIENT HAS A ZAPATA: No General: Alert, Oriented X3, Cooperative, mild distress Abdomen: Normal bowel sounds, Soft, Other (Mild incisional tenderness AMY drains with serosanguineous drainage) Labs Laboratory Tests Test 11/14/19 03:45 White Blood Count 8.8 x10^3/uL (4.0-11.0) Red Blood Count 3.62 x10^6/uL (3.50-5.40) Hemoglobin 11.1 g/dL (12.0-15.5) Hematocrit 32.4 % (36.0-47.0) Mean Corpuscular Volume 90 fL (79-100) Mean Corpuscular Hemoglobin 31 pg (25-35) Mean Corpuscular Hemoglobin Concent 34 g/dL (31-37) Red Cell Distribution Width 12.8 % (11.5-14.5) Platelet Count 195 x10^3/uL (140-400) Neutrophils (%) (Auto) 70 % (31-73) Lymphocytes (%) (Auto) 20 % (24-48) Monocytes (%) (Auto) 8 % (0-9) Eosinophils (%) (Auto) 1 % (0-3) Basophils (%) (Auto) 1 % (0-3) Neutrophils # (Auto) 6.1 x10^3/uL (1.8-7.7) Lymphocytes # (Auto) 1.8 x10^3/uL (1.0-4.8) Monocytes # (Auto) 0.7 x10^3/uL (0.0-1.1) Eosinophils # (Auto) 0.1 x10^3/uL (0.0-0.7) Basophils # (Auto) 0.1 x10^3/uL (0.0-0.2) Assessment/Plan Status post ventral incisional hernia repair with mesh. We will advance diet to regular change Percocet to hydrocodone if tolerated well could discharge this afternoon Justicifation of Admission Dx: Justifications for Admission: Justification of Admission Dx: N/A NAVYA CHAMBERLAIN MD Nov 15, 2019 08:17
[2019-11-15] MEDS: EZETIMIBE 10 MG TABLET. PO SCH (08:18)
[2019-11-15] MEDS: SERTRALINE 50 MG TABLET. PO SCH (08:18)
[2019-11-15] MEDS: PANTOPRAZOLE 40 MG TABLET.DR. PO SCH (08:19)
[2019-11-15] MEDS: MULTIVITAMIN with MINERAL TABLET. PO SCH (08:19)
[2019-11-15] MEDS: SPIRONOLACTONE 25 MG TABLET PO SCH (08:19)
[2019-11-15 08:20] VITALS: BP 120/68
[2019-11-15] MEDS: METOPROLOL TART IMMED RELEASE 25 MG TABLET. PO SCH (08:20)
[2019-11-15] MEDS: LEVOTHYROXINE 75 MCG TABLET PO SCH (08:20)
--- NOTE | 2019-11-15 08:23 | DISCH ---
DISCHARGE INSTRUCTIONS Condition on Discharge Condition on Discharge: Stable Activity After Discharge Activity Instructions for Disc: Avoid exertion Other activity instructions: No lifting more than 20 pounds for 6 weeks Lifting Instructions after Dis: No heavy lifting Diet after Discharge Diet after Discharge: Regular Wound Incision Care Wound/Incision Care: Ice to area for comfort Other wound/incision instructi: May shower need to keep AMY drain dry monitor AMY output daily Contacting the [facility] after DC Call your doctor for: If your condition worsens Follow-Up Follow up with: Dr. Chamberlain on 11/18/2019 for possible removal AMY drain Treatment/Equipment after DC Adaptive Equipment Issued: None NAVYA CHAMBERLAIN MD Nov 15, 2019 08:23
[2019-11-15] MEDS ORDERED: HYDROcodone/APAP 5/325MG 1 TAB TABLET PO PRN ×2 (08:30)
[2019-11-15] MEDS ORDERED: HYDR-3164 PO (10:42)
== END 2019-11-15 11:30 | disposition home or self-care (01) | DRG 328 ==
LOC: SURG 06:02 → 5 NORTH 09:36
PROVIDERS: ADMIT Surgery; ATTEND Surgery
PROC: 0DN64ZZ Release Stomach, Percutaneous Endoscopic Approach (ICD-10-PCS; 2019-11-13)
PROC: 0DQ84ZZ Repair Small Intestine, Percutaneous Endoscopic Approach (ICD-10-PCS; 2019-11-13)
PROC: 8E0W4CZ Robotic Assisted Procedure of Trunk Region, Percutaneous Endoscopic Approach (ICD-10-PCS; 2019-11-13)
PROC: 0WUF0JZ Supplement Abdominal Wall with Synthetic Substitute, Open Approach (ICD-10-PCS; principal; 2019-11-13 07:30)
DX: K43.2 Incisional hernia without obstruction or gangrene (principal); K66.0 Peritoneal adhesions (postprocedural) (postinfection); Z88.5 Allergy status to narcotic agent
CPT/HCPCS: 36415; 85025; J0330; J0690; J0694; J1100; J1170; J1885; J2370; J2405; J2704; J3010; J7121; G0378

== ENCOUNTER → 2020-04-19 | Outpatient (CLI) | payer OTHER ==
[~2020-04-19] MED LIST changes: -ACETAMINOPHEN 500 MG TABLET PO PRN; +EZET10TA48 PO; +HYDR-3164 PO; -ceFAZolin SODIUM IV Push 1 GM VIAL. IVP PRN
[2020-04-19 14:14] LABS: BASO # 0.1 x10^3/uL (0.0-0.2); BASO % 1 % (0-3); EOS # 0.2 x10^3/uL (0.0-0.7); EOS % 3 % (0-3); HEMATOCRIT 37.3 % (36.0-47.0); HEMOGLOBIN 12.7 g/dL (12.0-15.5); LYMPH % 31 % (24-48); MEAN CORPUSCULAR HEMOGLOBIN 30 pg (25-35); MEAN CORPUSCULAR HGB CONC 34 g/dL (31-37); MEAN CORPUSCULAR VOLUME 87 fL (79-100); MONO # 0.4 x10^3/uL (0.0-1.1); MONO % 7 % (0-9); NEUT # 3.8 x10^3/uL (1.8-7.7); NEUT % 59 % (31-73); PLATELET COUNT 245 x10^3/uL (140-400); RED BLOOD COUNT 4.27 x10^6/uL (3.50-5.40); RED CELL DISTRIBUTION WIDTH 13.1 % (11.5-14.5); WHITE BLOOD COUNT 6.5 x10^3/uL (4.0-11.0)
[2020-04-19 14:29] LABS: CALCIUM 9.3 mg/dL (8.5-10.1); CREATININE 0.9 mg/dL (0.6-1.0); GFR 64.3; POTASSIUM 3.9 mmol/L (3.5-5.1)
[2020-04-19 14:35] LABS: ALBUMIN 3.8 g/dL (3.4-5.0); ALBUMIN/GLOBULIN RATIO 1.2 (1.0-1.7); TOTAL BILIRUBIN 0.5 mg/dL (0.2-1.0); TOTAL PROTEIN 7.1 g/dL (6.4-8.2)
== END ==
LOC: ONCLAB 13:43
PROVIDERS: ATTEND Internal Medicine Hematology & Oncology
DX: Z85.038 Personal history of other malignant neoplasm of large intestine (principal)
CPT/HCPCS: 36415; 80053; 82378; 85025

== ENCOUNTER 2020-07-22 10:36 | Emergency (ER) | payer OTHER ==
[~2020-07-22] VITALS: Ht 157.5 cm; Wt 63.0 kg
[2020-07-22 10:57] VITALS: BP 142/74
--- NOTE | 2020-07-22 11:29 | PHYS DOC ---
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 Patient states that she has not hurt the knee or drinking out of her usual daily routine. States she has been off last couple days and has not done much. Patient is rating her pain at a 6 out of 10 and it does not radiate. Patient states it hurts worse when she is up and walking but she has been walking on the extremity. She denies numbness or tingling, injury or fevers focal weakness or laxity. Patient has a history of cholecystectomy, tubal ligation, cancer, hyperaldosterone, prediabetes, liver and colon resection, colostomy with reversal. Patient states she did take some ibuprofen earlier this morning. (CED PAUL M PARADI OPERATOR) Review of Systems: Review of Systems: Constitutional: Denies fever or chills. [] Eyes: Denies change in visual acuity. [] HENT: Denies nasal congestion or sore throat. [] Respiratory: Denies cough or shortness of breath. [] Cardiovascular: Denies chest pain. + Left knee edema. [] GI: Denies abdominal pain, nausea, vomiting, bloody stools or diarrhea. [] : Denies dysuria. [] Musculoskeletal: Denies back pain. + Left knee joint pain. [] Integument: Denies rash. [] Neurologic: Denies headache, focal weakness or sensory changes. [] Endocrine: Denies polyuria or polydipsia. [] Lymphatic: Denies swollen glands. [] Psychiatric: Denies depression or anxiety. [] (CED PAUL PARADI OPERATOR) Heart Score: C/O Chest Pain: No Risk Factors: Risk Factors: DM, Current or recent (<one month) smoker, HTN, HLP, family history of CAD, obesity. Risk Scores: Score 0 - 3: 2.5% MACE over next 6 weeks - Discharge Home Score 4 - 6: 20.3% MACE over next 6 weeks - Admit for Clinical Observation Score 7 - 10: 72.7% MACE over next 6 weeks - Early Invasive Strategies (CED PAUL APRN) Allergies: Allergies: Allergies Coded Allergies Type Severity Reaction Last Updated Verified morphine Allergy Intermediate Itching 11/13/19 Yes (CED PAUL APRN) Physical Exam: PE: Constitutional: Well developed, well nourished, no acute distress, non-toxic appearance. [] HENT: Normocephalic, atraumatic, bilateral external ears normal, oropharynx moist, no oral exudates, nose normal. [] Eyes: PERRLA, EOMI, conjunctiva normal, no discharge. [] Neck: Normal range of motion, no tenderness, supple, no stridor. [] Cardiovascular:Heart rate regular rhythm, no murmur [] Lungs & Thorax: Bilateral breath sounds clear to auscultation [] Abdomen: Bowel sounds normal, soft, no tenderness, no masses, no pulsatile masses. [] Skin: Warm, dry, no erythema, no rash. [] Back: No tenderness, no CVA tenderness. [] Extremities: No tenderness, no cyanosis, no clubbing, ROM intact, no edema. [] Neurologic: Alert and oriented X 3, normal motor function, normal sensory function, no focal deficits noted. [] Psychologic: Affect normal, judgement normal, mood normal. [] (CED PAUL APRN) Current Patient Data: Vital Signs: Vital Signs Date Time Temp Pulse Resp B/P (MAP) Pulse Ox O2 Delivery O2 Flow Rate FiO2 07/22/20 10:57 98.1 70 16 142/74 (96) 98 Room Air 98.1 (CED PAUL APRN) EKG: EKG: [] (CED PAUL APRN) Radiology/Procedures: Radiology/Procedures: [] Impression: [facility] [address] [place] [address] IMAGING REPORT Signed PATIENT: BALBIR FELTON ACCOUNT: [id number] : 1960 LOCATION: ER AGE: 60 SEX: F EXAM STATUS: REG ER ORD. PHYSICIAN: CED PAUL APRN REASON: pain, tenderness, swelling PROCEDURE: KNEE LEFT 4V Study: XR KNEE _4 VIEWS WITH PATELLA_LT Indication: Pain. Tenderness. Swelling. Comparison: 09/22/2018 Findings: No acute fracture. Alignment is within normal limits. Unchanged femorotibial compartment joint space height. Scattered small osteophytes. No radiographic evidence for large knee joint effusion. Mild asymmetric fatty reticulation of the subcutaneous tissues at the medial knee but similar to the comparison. Impression: No acute osseous abnormality. Mild arthrosis not significantly progressed from 09/22/2018. Electronically signed by: JOSE RAUL RAE MD (07/22/2020 12:13 PM) [id number] DICTATED and SIGNED BY: JOSE RAUL RAE MD DATE: 07/22/20 [id number] (CED PAUL APRN) Course & Med Decision Making: Course & Med Decision Making Pertinent Labs and Imaging studies reviewed. (See chart for details) See HPI. Alert and oriented x4. Ambulatory with a steady gait. Speaks in full complete sentences. Full range of motion of the knee but it is more painful with bending the knee. 1+ swelling. There is no redness or heat. No signs of infection or laxity. No deformity. Popliteal pulse strong present. Skin pink warm and dry. [] (CED PAUL APRN) Dragon Disclaimer: Dragon Disclaimer: This electronic medical record was generated, in whole or in part, using a voice recognition dictation system. (CED PAUL APRN) Departure Departure Impression: Primary Impression: Knee pain, left Qualified Codes: M25.562 - Pain in left knee Disposition: HOME / SELF CARE / HOMELESS Condition: STABLE Referrals: LISA DICKERSON NP (PCP) JESUS ALVES MD Patient Instructions: Arthralgia, [id number], Arthritis, Degenerative-Brief Additional Instructions: Follow-up with a orthopedic doctor soon as possible. Use ice and elevation. Take medication as prescribed and with food. Scripts Diclofenac Sodium (DICLOFENAC SODIUM) 50 Mg Tablet.dr 1 TAB PO BID, #14 TAB 1 Refill Prov: CED PAUL APRN 07/22/20 Attending Signature Attending Signature I have reviewed the PA/BINGO CLERK's note and plan of care. I was available for consultation as needed during the patient's visit in the emergency department. I agree with the clinical impression, plan, and disposition. (ADOLPH PIERSON DO) CED PAUL APRN July 22, 2020 11:29 ADOLPH PIERSON DO July 23, 2020 06:30
--- NOTE | 2020-07-22 12:16 | RAD ---
Study: XR KNEE _4 VIEWS WITH PATELLA_LT Indication: Pain. Tenderness. Swelling. Comparison: 09/22/2018 Findings: No acute fracture. Alignment is within normal limits. Unchanged femorotibial compartment joint space height. Scattered small osteophytes. No radiographic evidence for large knee joint effusion. Mild asy mmetric fatty reticulation of the subcutaneous tissues at the medial knee but similar to the comparis on. Impression: No acute osseous abnormality. Mild arthrosis not significantly progressed from 09/22/2018. Electronically signed by: JOSE RAUL RAE MD (07/22/2020 12:13 PM) [id number]
[2020-07-22] MEDS ORDERED: DICL50TA4 PO (12:27)
== END 2020-07-22 12:45 | disposition home or self-care (01) ==
LOC: ER 10:36
DX: M25.562 Pain in left knee (principal); E26.9 Hyperaldosteronism, unspecified; Z90.49 Acquired absence of other specified parts of digestive tract; Z98.51 Tubal ligation status
CPT/HCPCS: 73564; 99283

== ENCOUNTER 2020-09-01 17:05 | Observation (INO) | payer OTHER ==
[~2020-09-01] VITALS: Ht 154.9 cm; Wt 66.4 kg
[~2020-09-01 17:05] MED LIST changes: +DICL50TA4 PO
[2020-09-01] MEDS ORDERED: ASPIRIN 325 MG TABLET PO ONE (17:30)
--- NOTE | 2020-09-01 17:32 | PHYS DOC ---
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 Patient denies history of prior CAD. Reports cardiac risk factors of high blood pressure, high cholesterol, and former smoker. Denies leg swelling or calf tenderness. Denies history of prior stress test. Denies trauma. Denies fever or chills. Denies cough. Denies known exposure to COVID- 19. (ADOLPH PIERSON DO) Review of Systems: Review of Systems: Constitutional: Denies fever or chills Eyes: Denies redness or eye pain HENT: Denies nasal congestion or sore throat Respiratory: Denies cough or shortness of breath Cardiovascular: Reports chest pain; denies palpitations GI: Denies abdominal pain, nausea, or vomiting : Denies dysuria or hematuria Musculoskeletal: Denies back pain; reports left arm pain Integument: Denies rash or skin lesions Neurologic: Denies headache, focal weakness or sensory changes Complete systems were reviewed and found to be within normal limits, except as documented in this note. (ADOLPH PIERSON DO) Heart Score: C/O Chest Pain: Yes HEART Score for Chest Pain: HEART Score for Chest Pain Response (Comments) Value History Moderately Suspicious 1 ECG Normal 0 Age >45 - < 65 1 Risk Factors >3 Risk Factors or Hx CAD 2 Troponin < Normal Limit 0 Total 4 Risk Factors: Risk Factors: DM, Current or recent (<one month) smoker, HTN, HLP, family history of CAD, obesity. Risk Scores: Score 0 - 3: 2.5% MACE over next 6 weeks - Discharge Home Score 4 - 6: 20.3% MACE over next 6 weeks - Admit for Clinical Observation Score 7 - 10: 72.7% MACE over next 6 weeks - Early Invasive Strategies (ADOLPH PIERSON DO) Current Medications: Current Medications Medications (Trade) Dose Ordered Sig/Ga Start Time Stop Time Status Last Admin Dose Admin Aspirin (Roberto Aspirin) 325 mg 1X ONCE 09/01/20 17:30 09/01/20 17:31 (ADOLPH PIERSON DO) Allergies: Allergies: Allergies Coded Allergies Type Severity Reaction Last Updated Verified morphine Allergy Intermediate Itching 11/13/19 Yes (ADOLPH PIERSON DO) Physical Exam: PE: Constitutional: Well developed, well nourished, uncomfortable but non-toxic HENT: Normocephalic, atraumatic Eyes: Conjunctiva normal, no discharge Neck: Normal range of motion, no tenderness, supple Lungs & Thorax: No respiratory distress, equal chest rise and fall, no chest wall pain on palpation Abdomen: Soft, no tenderness, no guarding/rebound tenderness/distention Skin: Warm, dry, no erythema, no rash Back: No tenderness, no CVA tenderness Extremities: No calf tenderness, ROM intact, 1+ BLE edema Neurologic: Alert and oriented X 3, no focal deficits noted Psychologic: Affect normal, judgment normal (ADOLPH PIERSON DO) EKG: EKG: @1727 NSR at 76bpm, NO ST elevation, occasional PVC, QRS 86ms, QT/QTc 402/452m, nonspecific t wave inversion III (ADOLPH PIERSON DO) Radiology/Procedures: Radiology/Procedures: [] (ADOLPH PIERSON DO) Radiology/Procedures: NT: BALBIR FELTON ACCOUNT: [id number] : 1960 LOCATION: ER AGE: 60 SEX: F EXAM STATUS: REG ER ORD. PHYSICIAN: ADOLPH PIERSON DO REASON: chest pain PROCEDURE: PORTABLE CHEST 1V XR CHEST 1V History: Reason: chest pain / Spl. Instructions: / History: Comparison: None. Findings: No consolidation or pleural effusion. Normal heart size. No pneumothorax. Impression: 1. No acute cardiopulmonary process. Electronically signed by: Marco A Wolf DO (09/01/2020 5:55 PM) [facility] DICTATED and SIGNED BY: MARCO A WOLF DO DATE: 09/01/20 [id number] 0 (MATA ELLER DO) Course & Med Decision Making: Course & Med Decision Making Pertinent Labs and Imaging studies reviewed. (See chart for details) Patient presents with midsternal chest pain with left arm involvement. Denies trauma. Patient with significant cardiac risk factors. EKG stable. Labs obtained and partially pending. Initial troponin within normal limits. Hypokalemia noted and addressed. Chest x-ray pending. HEART score 4. 1800-signout given to Dr. Moran for further evaluation and final disposition. Discussed current findings and plan with patient, who acknowledges understanding and agreement. (ADOLPH PIERSON DO) Course & Med Decision Making This is a 60-year-old female signed out to me by Dr. Pierson. The time of signout patient's troponin was pending. Plan for admission. Patient troponin is negative. An initial EKG showed no acute ST segment elevations. Repeat EKG at 1820 shows sinus rhythm with PVC. Ventricular rate of 60 bpm. MA interval 154 ms. QRS duration 88 ms. QTc [address] segment elevations. Patient potassium was 2.8 with a magnesium of 1.7. Started replacement in the emergency department. At this time based on patient's symptoms and findings will admit to the hospital for further observation and evaluation. Spoke with patient. Agreeable to admission. They are aware of all labs and imaging. All questions answered and patient stable at time of admission. I have spoken to the patient and/or caregivers. I have explained the patient's condition, diagnoses and treatment plan based on the information available to me at this time. I have answered the patient's and/or caregiver's questions and addressed my concerns. The patient and/or caregivers has a good understanding of the patient's diagnosis, condition and treatment plan as can be expected at this point. The patient has been stabilized within the capability of the emergency department. The patient will be transported for further care and management or will be moved to an observation or inpatient service. I have communicated with the staff or medical practitioner taking over this patient's care. (MATA ELLER DO) Dragon Disclaimer: Dragon Disclaimer: This electronic medical record was generated, in whole or in part, using a voice recognition dictation system. (ADOLPH PIERSON DO) Departure Departure Impression: Primary Impression: Chest pain Qualified Codes: R07.9 - Chest pain, unspecified Additional Impression: Hypokalemia Disposition: ADMITTED INPATIENT Admitting Physician: ESTELA (Admitted to Dr. Sofia at 1900. Reason with plan. Will see the patient.) (MATA ELLER DO) Condition: STABLE Referrals: LISA DICKERSON NP (PCP) ADOLPH PIERSON DO Sep 01, 2020 17:32 MATA ELLER DO Sep 01, 2020 19:01
[2020-09-01 17:56] LABS: BASO # 0.1 x10^3/uL (0.0-0.2); BASO % 1 % (0-3); EOS # 0.2 x10^3/uL (0.0-0.7); EOS % 3 % (0-3); HEMATOCRIT 35.9 % (36.0-47.0); HEMOGLOBIN 12.6 g/dL (12.0-15.5); LYMPH # 2.4 x10^3/uL (1.0-4.8); LYMPH % 35 % (24-48); MEAN CORPUSCULAR HEMOGLOBIN 30 pg (25-35); MEAN CORPUSCULAR HGB CONC 35 g/dL (31-37); MEAN CORPUSCULAR VOLUME 87 fL (79-100); MONO # 0.4 x10^3/uL (0.0-1.1); MONO % 6 % (0-9); NEUT # 3.7 x10^3/uL (1.8-7.7); NEUT % 55 % (31-73); PLATELET COUNT 259 x10^3/uL (140-400); RED BLOOD COUNT 4.14 x10^6/uL (3.50-5.40); RED CELL DISTRIBUTION WIDTH 13.1 % (11.5-14.5); WHITE BLOOD COUNT 6.8 x10^3/uL (4.0-11.0)
[2020-09-01 17:57] LABS: BILIRUBIN,URINE SMALL (NEG); COLOR,URINE YELLOW; NITRITE,URINE NEGATIVE (NEG); PROTEIN,URINE 30 mg/dL (NEG-TRACE); UROBILINOGEN,URINE 0.2 mg/dL (0.2 mg/dL)
--- NOTE | 2020-09-01 17:57 | RAD ---
XR CHEST 1V History: Reason: chest pain / Spl. Instructions: / History: Comparison: None. Findings: No consolidation or pleural effusion. Normal heart size. No pneumothorax. Impression: 1. No acute cardiopulmonary process. Electronically signed by: Marco A Wolf DO (09/01/2020 5:55 PM) [facility] [place]
[2020-09-01] MEDS ORDERED: fentaNYL PF VIAL 100 MCG/2 ML VIAL IV ONE (18:00)
--- NOTE | 2020-09-01 18:01 | EKG ---
[facility] [address] [place] [address] Test Date: 2020-09-01 Test Time: 17:27:57 Pat Name: BALBIR FELTON Department: Room: Gender: F Data Collection Associate: : 1960 Requested By: ADOLPH PIERSON Order Number: [id number] Reading MD: Measurements Intervals Dinosaur Rate: 76 P: 24 TN: 140 QRS: -28 QRSD: 86 T: 1 QT: 402 QTc: 452 Interpretive Statements SINUS RHYTHM VENTRICULAR PREMATURE COMPLEX(ES) LEFTWARD AXIS T ABNORMALITY IN HIGH LATERAL LEADS INFERIOR LEADS ABNORMAL ECG RI6.02 No previous ECG available for comparison
[2020-09-01 18:03] LABS: CLARITY,URINE HAZY
[2020-09-01 18:04] LABS: AMORPHOUS SEDIMENT,UR PRESENT /HPF; BACTERIA,URINE 0 /HPF (0-FEW); RBC,URINE 0 /HPF (0-2); WBC,URINE OCC /HPF (0-4)
[2020-09-01] MEDS ORDERED: ONDANSETRON PF 4 MG/2 ML VIAL. IVP ONE (18:15)
[2020-09-01 18:16] LABS: ALBUMIN 4.3 g/dL (3.4-5.0); ALBUMIN/GLOBULIN RATIO 1.5 (1.0-1.7); CALCIUM 8.8 mg/dL (8.5-10.1); CREATININE 0.9 mg/dL (0.6-1.0); GFR 64.1; MAGNESIUM 1.7 mg/dL (1.8-2.4); TOTAL BILIRUBIN 0.4 mg/dL (0.2-1.0); TOTAL PROTEIN 7.2 g/dL (6.4-8.2)
[2020-09-01 18:27] LABS: POTASSIUM 2.8 mmol/L (3.5-5.1)
[2020-09-01] MEDS ORDERED: POTASSIUM CHLORIDE 20MEQ 100 ML IV ONE (18:30)
[2020-09-01] MEDS ORDERED: POTASSIUM CHLORIDE 20 MEQ TABLET.ER. PO ONE (18:30)
[2020-09-01] MEDS ORDERED: MAGNESIUM SULFATE 2GM 50 ML IV ONE (19:00)
[2020-09-01] MEDS ORDERED: POTASSIUM BICARB 20 MEQ EFFERVESCENT TABLET. PO ONE (19:00)
[2020-09-01] MEDS ORDERED: HYDROmorphone 2 MG/ML VIAL IVP PRN (19:45)
[2020-09-01] MEDS ORDERED: CALCIUM CARBONATE 500 MG TAB.CHEW PO PRN (19:45)
[2020-09-01] MEDS ORDERED: HYDROmorphone 2 MG/ML VIAL IV PRN (19:45)
[2020-09-01] MEDS ORDERED: ONDANSETRON PF 4 MG/2 ML VIAL. IVP PRN (19:45)
[2020-09-01] MEDS ORDERED: BISACODYL 10 MG SUPP.RECT. PR PRN (19:45)
[2020-09-01] MEDS ORDERED: ELECTROLYTE (NON-ICU) PROTOCOL. MC PRN (19:45)
[2020-09-01] MEDS ORDERED: MAG HYDROX/ALUMINUM HYD/SIMETH 30 ML ORAL.SUSP PO PRN (19:45)
[2020-09-01] MEDS ORDERED: ACETAMINOPHEN 325 MG TABLET. PO PRN (19:45)
[2020-09-01] MEDS ORDERED: ZOLPIDEM 5 MG TABLET. PO PRN (19:45)
[2020-09-01] MEDS ORDERED: MAGNESIUM HYDROXIDE 2,400 MG/30 ML ORAL.SUSP. PO PRN (19:45)
[2020-09-01] MEDS ORDERED: NITROGLYCERIN SUBLINGUAL 0.4 MG BOTTLE OF 25. SL PRN (20:00)
--- NOTE | 2020-09-01 20:04 | PDOC1 ---
History and Physical Date of Admission Date of Admission DATE: 09/01/20 TIME: 19:34 Identification/Chief Complaint Chief Complaint Chest pain Source Source: Patient History of Present Illness History of Present Illness Patient is a 60-year-old female with past medical history HLD, HTN, hyperaldosteronism, stage IV colon cancer, short bowel syndrome, who presents to the ED with complaints of chest pain that began today around noon. 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 She reports aching chest pain, 5/10, that progressed and radiated to her left arm. She also reports associated decreased appetite. She is taken ibuprofen for symptoms without improvement. Upon evaluation in the ED initial troponin <0.017, potassium 2.8, sodium 147, magnesium 1.7. EKG largely unrevealing. She received IV fentanyl for symptoms without improvement. She does report a history of similar symptoms when she was first diagnosed with hyperaldosteronism and her potassium was equally low. Since that time she has been taking spironolactone with improvement in her potassium. Will admit patient for further medical management. Past Medical History Past Medical History Hyperaldosteronism, history of stage IV colon cancer, HTN, HLD, short gut syndrome, hypothyroidism, anxiety/depression Past Surgical History Past Surgical History Hemicolectomy, cecectomy, polypectomy Past Surgical History: Hernia Repair Family History Family History: Cancer, Coronary Artery Disease Social History Smoke: Quit ALCOHOL: none Drugs: None Current Problem List Problem List Problems Medical Problems: (1) Chest pain Status: Acute (2) Hypokalemia Status: Acute Current Medications Current Medications Current Medications Aspirin (Roberto Aspirin) 325 mg 1X ONCE PO Last administered on 09/01/20at 18:09; Start 09/01/20 at 17:30; Stop 09/01/20 at 17:31; Status DC Fentanyl Citrate (Fentanyl 2ml Vial) 50 mcg 1X ONCE IV Last administered on 09/01/20at 18:09; Start 09/01/20 at 18:00; Stop 09/01/20 at 18:01; Status DC Ondansetron HCl (Zofran) 4 mg 1X ONCE IVP Last administered on 09/01/20at 18:44; Start 09/01/20 at 18:15; Stop 09/01/20 at 18:18; Status DC Potassium Chloride/Water 100 ml @ 50 mls/hr 1X ONCE IV ; Start 09/01/20 at 18:30; Stop 09/01/20 at 18:44; Status DC Potassium Chloride (Klor-Con) 40 meq 1X ONCE PO ; Start 09/01/20 at 18:30; Stop 09/01/20 at 18:44; Status DC Potassium Bicarbonate (Potassium Effervescent Tablet) 40 meq 1X ONCE PO Last administered on 09/01/20at 18:56; Start 09/01/20 at 19:00; Stop 09/01/20 at 19:01; Status DC Magnesium Sulfate 50 ml @ 25 mls/hr 1X ONCE IV Last administered on 09/01/20at 18:57; Start 09/01/20 at 19:00; Stop 09/01/20 at 20:59 Active Scripts Active Diclofenac Sodium 50 Mg Tablet.dr 1 Tab PO BID Reported [place] 5-325 Tablet (Acetaminophen/Hydrocodone Bitart) 1 Each Tablet 1-2 Tab PO Q6HRS Ezetimibe 10 Mg Tablet 1 Tab PO DAILY Pantoprazole Sodium (Pantoprazole Sodium) 40 Mg Tablet.dr 40 Mg PO DAILYAC Multi Vitamin Daily (Multivitamin) 1 Each Tablet 1 Each PO DAILY Zoloft (Sertraline Hcl) 100 Mg Tablet 150 Mg PO DAILY Levothyroxine Sodium 75 Mcg Tablet 75 Mcg PO DAILYAC Metoprolol Tartrate 25 Mg Tablet 25 Mg PO BID Spironolactone 50 Mg Tablet 50 Mg PO DAILY Allergies Allergies: Coded Allergies: morphine (Verified Allergy, Intermediate, Itching, 11/13/19) ROS Review of System GENERAL: No history of weight change, weakness or fevers. SKIN: No bruising, hair changes or rashes. EYES: No blurred, double or loss of vision. NOSE AND THROAT: No history of nosebleeds, hoarseness or sore throat. HEART: Chest pain. Denies palpitations. LUNGS: Denies cough, hemoptysis, wheezing or shortness of breath. GASTROINTESTINAL: Decreased appetite. Denies nausea, vomiting, abdominal pain. GENITOURINARY: Denies dysuria, frequency, urgency, hematuria. NEUROLOGIC: Denies history of numbness, tingling, tremor or weakness. PSYCHIATRIC: Denies anxiety, denies depression. ENDOCRINE: No history of heat or cold intolerance, polyuria or polydipsia. EXTREMITIES: Denies muscle weakness, joint pain, pain on walking or stiffness. Physical Exam Physical Exam General: Alert, Oriented X3, Cooperative, No acute distress HEENT: PERRLA, EOMI Lungs: Clear to auscultation, Normal air movement Heart: RRR, systolic murmur Cardiovascular: S1, S2 Abdomen: Normal bowel sounds, Soft, No tenderness Extremities: Bilateral lower extremity edema. No clubbing, No cyanosis Skin: No rashes, No significant lesion Neuro: Normal speech, Normal tone, Sensation intact Psych/Mental Status: Mental status NL, Mood NL Vitals Vitals Vital Signs Date Time Temp Pulse Resp B/P (MAP) Pulse Ox O2 Delivery O2 Flow Rate FiO2 09/01/20 18:09 19 98 Room Air 09/01/20 17:15 98.0 87 163/95 (117) 98.0 Labs Labs Laboratory Tests Test 09/01/20 17:30 09/01/20 17:45 Urine Collection Type Unknown Urine Color Yellow Urine Clarity Hazy Urine pH 6.0 (<5.0-8.0) Urine Specific [place] >=1.030 (1.000-1.030) Urine Protein 30 mg/dL (NEG-TRACE) Urine Glucose (UA) Negative mg/dL (NEG) Urine Ketones (Stick) Trace mg/dL (NEG) Urine Blood Negative (NEG) Urine Nitrite Negative (NEG) Urine Bilirubin Small (NEG) Urine Urobilinogen Dipstick 0.2 mg/dL (0.2 mg/dL) Urine Leukocyte Esterase Negative (NEG) Urine RBC 0 /HPF (0-2) Urine WBC Occ /HPF (0-4) Urine Squamous Epithelial Cells Mod /LPF Urine Amorphous Sediment Present /HPF Urine Bacteria 0 /HPF (0-FEW) Urine Mucus Marked /LPF White Blood Count 6.8 x10^3/uL (4.0-11.0) Red Blood Count 4.14 x10^6/uL (3.50-5.40) Hemoglobin 12.6 g/dL (12.0-15.5) Hematocrit 35.9 % (36.0-47.0) Mean Corpuscular Volume 87 fL (79-100) Mean Corpuscular Hemoglobin 30 pg (25-35) Mean Corpuscular Hemoglobin Concent 35 g/dL (31-37) Red Cell Distribution Width 13.1 % (11.5-14.5) Platelet Count 259 x10^3/uL (140-400) Neutrophils (%) (Auto) 55 % (31-73) Lymphocytes (%) (Auto) 35 % (24-48) Monocytes (%) (Auto) 6 % (0-9) Eosinophils (%) (Auto) 3 % (0-3) Basophils (%) (Auto) 1 % (0-3) Neutrophils # (Auto) 3.7 x10^3/uL (1.8-7.7) Lymphocytes # (Auto) 2.4 x10^3/uL (1.0-4.8) Monocytes # (Auto) 0.4 x10^3/uL (0.0-1.1) Eosinophils # (Auto) 0.2 x10^3/uL (0.0-0.7) Basophils # (Auto) 0.1 x10^3/uL (0.0-0.2) Sodium Level 147 mmol/L (136-145) Potassium Level 2.8 mmol/L (3.5-5.1) Chloride Level 109 mmol/L (98-107) Carbon Dioxide Level 25 mmol/L (21-32) Anion Gap 13 (6-14) Blood Urea Nitrogen 11 mg/dL (7-20) Creatinine 0.9 mg/dL (0.6-1.0) Estimated GFR (Cockcroft-Gault) 64.1 BUN/Creatinine Ratio 12 (6-20) Glucose Level 111 mg/dL (70-99) Calcium Level 8.8 mg/dL (8.5-10.1) Magnesium Level 1.7 mg/dL (1.8-2.4) Total Bilirubin 0.4 mg/dL (0.2-1.0) Aspartate Amino Transf (AST/SGOT) 24 U/L (15-37) Alanine Aminotransferase (ALT/SGPT) 38 U/L (14-59) Alkaline Phosphatase 78 U/L (46-116) Troponin I Quantitative < 0.017 ng/mL (0.000-0.055) [id number]-Type Natriuretic Peptide 124 pg/mL (0-124) Total Protein 7.2 g/dL (6.4-8.2) Albumin 4.3 g/dL (3.4-5.0) Albumin/Globulin Ratio 1.5 (1.0-1.7) Lipase 168 U/L (73-393) Laboratory Tests Test 09/01/20 17:30 09/01/20 17:45 Urine Collection Type Unknown Urine Color Yellow Urine Clarity Hazy Urine pH 6.0 (<5.0-8.0) Urine Specific [place] >=1.030 (1.000-1.030) Urine Protein 30 mg/dL (NEG-TRACE) Urine Glucose (UA) Negative mg/dL (NEG) Urine Ketones (Stick) Trace mg/dL (NEG) Urine Blood Negative (NEG) Urine Nitrite Negative (NEG) Urine Bilirubin Small (NEG) Urine Urobilinogen Dipstick 0.2 mg/dL (0.2 mg/dL) Urine Leukocyte Esterase Negative (NEG) Urine RBC 0 /HPF (0-2) Urine WBC Occ /HPF (0-4) Urine Squamous Epithelial Cells Mod /LPF Urine Amorphous Sediment Present /HPF Urine Bacteria 0 /HPF (0-FEW) Urine Mucus Marked /LPF White Blood Count 6.8 x10^3/uL (4.0-11.0) Red Blood Count 4.14 x10^6/uL (3.50-5.40) Hemoglobin 12.6 g/dL (12.0-15.5) Hematocrit 35.9 % (36.0-47.0) Mean Corpuscular Volume 87 fL (79-100) Mean Corpuscular Hemoglobin 30 pg (25-35) Mean Corpuscular Hemoglobin Concent 35 g/dL (31-37) Red Cell Distribution Width 13.1 % (11.5-14.5) Platelet Count 259 x10^3/uL (140-400) Neutrophils (%) (Auto) 55 % (31-73) Lymphocytes (%) (Auto) 35 % (24-48) Monocytes (%) (Auto) 6 % (0-9) Eosinophils (%) (Auto) 3 % (0-3) Basophils (%) (Auto) 1 % (0-3) Neutrophils # (Auto) 3.7 x10^3/uL (1.8-7.7) Lymphocytes # (Auto) 2.4 x10^3/uL (1.0-4.8) Monocytes # (Auto) 0.4 x10^3/uL (0.0-1.1) Eosinophils # (Auto) 0.2 x10^3/uL (0.0-0.7) Basophils # (Auto) 0.1 x10^3/uL (0.0-0.2) Sodium Level 147 mmol/L (136-145) Potassium Level 2.8 mmol/L (3.5-5.1) Chloride Level 109 mmol/L (98-107) Carbon Dioxide Level 25 mmol/L (21-32) Anion Gap 13 (6-14) Blood Urea Nitrogen 11 mg/dL (7-20) Creatinine 0.9 mg/dL (0.6-1.0) Estimated GFR (Cockcroft-Gault) 64.1 BUN/Creatinine Ratio 12 (6-20) Glucose Level 111 mg/dL (70-99) Calcium Level 8.8 mg/dL (8.5-10.1) Magnesium Level 1.7 mg/dL (1.8-2.4) Total Bilirubin 0.4 mg/dL (0.2-1.0) Aspartate Amino Transf (AST/SGOT) 24 U/L (15-37) Alanine Aminotransferase (ALT/SGPT) 38 U/L (14-59) Alkaline Phosphatase 78 U/L (46-116) Troponin I Quantitative < 0.017 ng/mL (0.000-0.055) BO-Npc-Q-Type Natriuretic Peptide 124 pg/mL (0-124) Total Protein 7.2 g/dL (6.4-8.2) Albumin 4.3 g/dL (3.4-5.0) Albumin/Globulin Ratio 1.5 (1.0-1.7) Lipase 168 U/L (73-393) Images Images PORTABLE CHEST 1V XR CHEST 1V History: Reason: chest pain / Spl. Instructions: / History: Comparison: None. Findings: No consolidation or pleural effusion. Normal heart size. No pneumothorax. Impression: 1. No acute cardiopulmonary process. VTE Prophylaxis Ordered VTE Prophylaxis Devices: No VTE Pharmacological Prophylaxi: Yes Assessment/Plan Assessment/Plan Unstable angina Hypokalemia Hypomagnesemia HLD HTN Hyperaldosteronism History anxiety/depression Plan: Initial troponin <0.017; will continue to trend. Consultation placed to cardiology Provide Dilaudid as needed due to morphine allergy, nitroglycerin as needed Echocardiogram pending Replace electrolytes; hypokalemia may be etiology of current chest pain given similar previous presentation. Telemetry Resume home medications FEN - Cardiac diet PPX - Heparin DNI Dispo - inpatient for above Advance Care Planning: Total time spent [id number] with patient 16 minutes in discussion with goals of care, comfort care, end-of-life care, pain management, code status; patient names her (Jose Westbrook) as surrogate decision- maker. Justifications for Admission Other Justification LOTTIE GREENE MD Sep 01, 2020 20:04
[2020-09-01] MEDS ORDERED: SERTRALINE 50 MG TABLET. PO SCH (21:00)
[2020-09-01 22:14] VITALS: BP 162/65
[2020-09-01] MEDS: METOPROLOL TART IMMED RELEASE 25 MG TABLET. PO SCH (22:48)
[2020-09-01] MEDS: HEPARIN for SUB-Q USE 5,000 UNIT/ML VIAL. SQ SCH (22:57)
[2020-09-02 02:25] VITALS: BP 153/85
--- NOTE | 2020-09-02 05:04 | EKG ---
[facility] [address] [place] [address] Test Date: 2020-09-01 Test Time: 18:20:17 Pat Name: BALBIR FELTON Department: Room: Gender: F Laboratory [place]: : 1960 Requested By: ADOLPH PIERSON Order Number: [id number] Reading MD: Measurements Intervals [place] Rate: 67 P: 26 MN: 154 QRS: -27 QRSD: 88 T: 8 QT: 434 QTc: 462 Interpretive Statements SINUS RHYTHM ATRIAL PREMATURE COMPLEX(ES) LEFTWARD AXIS OTHERWISE NORMAL ECG RI6.01 No previous ECG available for comparison
[2020-09-02] MEDS: HEPARIN for SUB-Q USE 5,000 UNIT/ML VIAL. SQ SCH (05:48)
[2020-09-02] MEDS ORDERED: LEVOTHYROXINE 75 MCG TABLET PO SCH (06:00)
[2020-09-02 07:00] VITALS: BP 140/76
[2020-09-02 07:10] LABS: CALCIUM 8.1 mg/dL (8.5-10.1); CREATININE 0.9 mg/dL (0.6-1.0); GFR 64.1; POTASSIUM 3.4 mmol/L (3.5-5.1)
[2020-09-02 07:27] LABS: CHOLESTEROL 174 mg/dL (0-200); HDLC 31 mg/dL (40-60); TRIGLYCERIDES 588 mg/dL (0-150); VLDLC 118 mg/dL (0-40)
[2020-09-02 07:28] LABS: CHOLESTEROL/HDL RATIO 5.6
[2020-09-02] MEDS ORDERED: POTASSIUM BICARB 20 MEQ EFFERVESCENT TABLET. PO ONE (08:00)
[2020-09-02] MEDS ORDERED: PROCHLORPERAZINE 10 MG/2 ML VIAL. IV PRN (08:00)
[2020-09-02] MEDS: METOPROLOL TART IMMED RELEASE 25 MG TABLET. PO SCH (08:15)
[2020-09-02] MEDS ORDERED: PANTOPRAZOLE 40 MG TABLET.DR. PO SCH (09:00)
[2020-09-02] MEDS ORDERED: EZETIMIBE 10 MG TABLET. PO SCH (09:00)
[2020-09-02] MEDS ORDERED: SPIRONOLACTONE 25 MG TABLET PO SCH (09:00)
[2020-09-02] MEDS ORDERED: SERTRALINE 50 MG TABLET. PO SCH (09:00)
--- NOTE | 2020-09-02 09:38 | PDOC ---
PROGRESS NOTES Date of Service: DATE: 09/02/20 TIME: 09:37 Chief Complaint Chief Complaint IMPRESSION Assessment/Plan Unstable angina Hypokalemia Hypomagnesemia HLD HTN Hyperaldosteronism History anxiety/depression Plan: Initial troponin <0.017; will continue to trend., consult cardiology Consultation placed to cardiology Provide Dilaudid as needed due to morphine allergy, nitroglycerin as needed Echocardiogram pending Replace electrolytes; hypokalemia may be etiology of current chest pain given similar previous presentation. Telemetry Resume home medications FEN - Cardiac diet PPX - Heparin DNI Dispo - inpatient for above ECHO Consult cardiology , home if echo ok, out pt STRESS TESTING D/W JUNNE History of Present Illness History of Present Illness Identification/Chief Complaint Chief Complaint Chest pain Source Source: Patient History of Present Illness History of Present Illness Patient is a 60-year-old female with past medical history HLD, HTN, hyperaldosteronism, stage IV colon cancer, short bowel syndrome, who presents to the ED with complaints of chest pain that began today around noon. 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 She reports aching chest pain, 5/10, that progressed and radiated to her left arm. She also reports associated decreased appetite. She is taken ibuprofen for symptoms without improvement. Upon evaluation in the ED initial troponin <0.017, potassium 2.8, sodium 147, magnesium 1.7. EKG largely unrevealing. She received IV fentanyl for symptoms without improvement. She does report a history of similar symptoms when she was first diagnosed with hyperaldosteronism and her potassium was equally low. Since that time she has been taking spironolactone with improvement in her potassium. Will admit patient for further medical management. Past Medical History Past Medical History Hyperaldosteronism, history of stage IV colon cancer, HTN, HLD, short gut syndrome, hypothyroidism, anxiety/depression Past Surgical History Past Surgical History Hemicolectomy, cecectomy, polypectomy Past Surgical History: Hernia Repair Family History Family History: Cancer, Coronary Artery Disease Social History Smoke: Quit ALCOHOL: none Drugs: None Current Problem List Problem List Problems Medical Problems: (1) Chest pain Status: Acute (2) Hypokalemia Status: Acute Current Medications Current Medications Current Medications Aspirin (Roberto Aspirin) 325 mg 1X ONCE PO Last administered on 09/01/20at 18:09; Start 09/01/20 at 17:30; Stop 09/01/20 at 17:31; Status DC Fentanyl Citrate (Fentanyl 2ml Vial) 50 mcg 1X ONCE IV Last administered on 09/01/20at 18:09; Start 09/01/20 at 18:00; Stop 09/01/20 at 18:01; Status DC Ondansetron HCl (Zofran) 4 mg 1X ONCE IVP Last administered on 09/01/20at 18:44; Start 09/01/20 at 18:15; Stop 09/01/20 at 18:18; Status DC Potassium Chloride/Water 100 ml @ 50 mls/hr 1X ONCE IV ; Start 09/01/20 at 18:30; Stop 09/01/20 at 18:44; Status DC Potassium Chloride (Klor-Con) 40 meq 1X ONCE PO ; Start 09/01/20 at 18:30; Stop 09/01/20 at 18:44; Status DC Potassium Bicarbonate (Potassium Effervescent Tablet) 40 meq 1X ONCE PO Last administered on 09/01/20at 18:56; Start 09/01/20 at 19:00; Stop 09/01/20 at 19:01; Status DC Magnesium Sulfate 50 ml @ 25 mls/hr 1X ONCE IV Last administered on 09/01/20at 18:57; Start 09/01/20 at 19:00; Stop 09/01/20 at 20:59 Active Scripts Active Diclofenac Sodium 50 Mg Tablet. 1 Tab PO BID Reported [place] 5-325 Tablet (Acetaminophen/Hydrocodone Bitart) 1 Each Tablet 1-2 Tab PO Q6HRS Ezetimibe 10 Mg Tablet 1 Tab PO DAILY Pantoprazole Sodium (Pantoprazole Sodium) 40 Mg Tablet. 40 Mg PO DAILYAC Multi Vitamin Daily (Multivitamin) 1 Each Tablet 1 Each PO DAILY Zoloft (Sertraline Hcl) 100 Mg Tablet 150 Mg PO DAILY Levothyroxine Sodium 75 Mcg Tablet 75 Mcg PO DAILYAC Metoprolol Tartrate 25 Mg Tablet 25 Mg PO BID Spironolactone 50 Mg Tablet 50 Mg PO DAILY Allergies Allergies: Coded Allergies: morphine (Verified Allergy, Intermediate, Itching, 11/13/19) ROS Review of System GENERAL: No history of weight change, weakness or fevers. SKIN: No bruising, hair changes or rashes. EYES: No blurred, double or loss of vision. NOSE AND THROAT: No history of nosebleeds, hoarseness or sore throat. HEART: Chest pain. Denies palpitations. LUNGS: Denies cough, hemoptysis, wheezing or shortness of breath. GASTROINTESTINAL: Decreased appetite. Denies nausea, vomiting, abdominal pain. GENITOURINARY: Denies dysuria, frequency, urgency, hematuria. NEUROLOGIC: Denies history of numbness, tingling, tremor or weakness. PSYCHIATRIC: Denies anxiety, denies depression. ENDOCRINE: No history of heat or cold intolerance, polyuria or polydipsia. EXTREMITIES: Denies muscle weakness, joint pain, pain on walking or stiffness. Vitals Vitals Vital Signs Date Time Temp Pulse Resp B/P (MAP) Pulse Ox O2 Delivery O2 Flow Rate FiO2 09/02/20 08:15 75 09/02/20 07:00 97.9 18 140/76 (97) 98 Room Air 97.9 Physical Exam Physical Exam Physical Exam General: Alert, Oriented X3, Cooperative, No acute distress HEENT: PERRLA, EOMI Lungs: Clear to auscultation, Normal air movement Heart: RRR, systolic murmur Cardiovascular: S1, S2 Abdomen: Normal bowel sounds, Soft, No tenderness Extremities: Bilateral lower extremity edema. No clubbing, No cyanosis Skin: No rashes, No significant lesion Neuro: Normal speech, Normal tone, Sensation intact Psych/Mental Status: Mental status NL, Mood NL General: Alert, Oriented X3, Cooperative, No acute distress Heart: Regular rate Extremities: No clubbing, No cyanosis Labs LABS Signed PATIENT: BALBIR FELTON ACCOUNT: [id number] : 1960 LOCATION: CT AGE: 57 SEX: F EXAM STATUS: REG CLI ORD. PHYSICIAN: DAHLIA HOPE MD REASON: CECUM MASS PROCEDURE: CT ABD PELV W/ORAL&IV CONTRAST CT study of the abdomen and pelvis with contrast Clinical indications: Cecal mass. TECHNIQUE: After IV infusion of 75 cc of Omnipaque 300, helical CT scanning of the abdomen and pelvis was performed. GI contrast was administered per mouth. PQRS compliance Statement One or more of the following individualized dose reduction techniques were utilized for this study: 1. Automated exposure control 2. Adjustment of the mA and/or kV according to patient size 3. Use of iterative reconstruction technique COMPARISON: None available. FINDINGS: Resection of the right lobe liver is seen. The rest of the liver is unremarkable. Spleen is not enlarged. Pancreas is unremarkable. No biliary ductal dilatation is seen. The gallbladder is surgically absent. No adrenal mass is seen. Bilateral renal cysts are seen. No hydronephrosis or hydroureter is evident on either side. Urinary bladder is not abnormally distended. No focal aneurysmal dilatation of the abdominal aorta is seen. No enlarged abdominal or pelvic lymphadenopathy is seen. Bilateral ovarian cysts are seen. Cyst of the left ovary measures 1.6 cm in size. Cyst of the right ovary measures 3.2 cm in size. No uterine mass or fibroid is seen. A low anastomosis of the rectal region is seen. No inflammatory change or free fluid or abscess is seen here. No mesenteric edema or free fluid or free air is seen throughout the abdomen. There is diffuse wall thickening of the colon. Lipoma of the ileocecal valve is seen. There is a round filling defect of the medial posterior wall of the cecum which measures 2.9 cm in greatest dimension. No pericolonic extension is seen. Terminal ileum is unremarkable. No obstructive bowel pattern is seen. Midline abdominal wall protrusion is evident but the overlying fascia appears intact. No lung base consolidation is evident. Grade 1-2 anterolisthesis of L5-S1 is seen secondary to bilateral spondylolysis of L5. No lytic process is seen. IMPRESSION: 2.9 cm filling defect or mass of the cecum is seen without pericolonic extension. In addition, there is diffuse wall thickening of the colon and rectosigmoid region. This could be due to incomplete distention or colitis. Surgical resection of the right lobe of the liver. Rest of the liver is unremarkable. Bilateral ovarian cysts. Bilateral spondylolysis of L5 resulting in grade 1-2 anterolisthesis of L5-S1. Electronically signed by: Shan Trevizo MD (04/04/2018 4:14 PM) [place] [id number] DICTATED and SIGNED BY: SHAN TREVIZO MD DATE: 04/04/18 1603 Laboratory Tests Test 09/01/20 17:30 09/01/20 17:45 09/01/20 21:35 09/02/20 06:25 Urine Collection Type Unknown Urine Color Yellow Urine Clarity Hazy Urine pH 6.0 (<5.0-8.0) Urine Specific [place] >=1.030 (1.000-1.030) Urine Protein 30 mg/dL (NEG-TRACE) Urine Glucose (UA) Negative mg/dL (NEG) Urine Ketones (Stick) Trace mg/dL (NEG) Urine Blood Negative (NEG) Urine Nitrite Negative (NEG) Urine Bilirubin Small (NEG) Urine Urobilinogen Dipstick 0.2 mg/dL (0.2 mg/dL) Urine Leukocyte Esterase Negative (NEG) Urine RBC 0 /HPF (0-2) Urine WBC Occ /HPF (0-4) Urine Squamous Epithelial Cells Mod /LPF Urine Amorphous Sediment Present /HPF Urine Bacteria 0 /HPF (0-FEW) Urine Mucus Marked /LPF White Blood Count 6.8 x10^3/uL (4.0-11.0) Red Blood Count 4.14 x10^6/uL (3.50-5.40) Hemoglobin 12.6 g/dL (12.0-15.5) Hematocrit 35.9 % (36.0-47.0) Mean Corpuscular Volume 87 fL (79-100) Mean Corpuscular Hemoglobin 30 pg (25-35) Mean Corpuscular Hemoglobin Concent 35 g/dL (31-37) Red Cell Distribution Width 13.1 % (11.5-14.5) Platelet Count 259 x10^3/uL (140-400) Neutrophils (%) (Auto) 55 % (31-73) Lymphocytes (%) (Auto) 35 % (24-48) Monocytes (%) (Auto) 6 % (0-9) Eosinophils (%) (Auto) 3 % (0-3) Basophils (%) (Auto) 1 % (0-3) Neutrophils # (Auto) 3.7 x10^3/uL (1.8-7.7) Lymphocytes # (Auto) 2.4 x10^3/uL (1.0-4.8) Monocytes # (Auto) 0.4 x10^3/uL (0.0-1.1) Eosinophils # (Auto) 0.2 x10^3/uL (0.0-0.7) Basophils # (Auto) 0.1 x10^3/uL (0.0-0.2) Sodium Level 147 mmol/L (136-145) 147 mmol/L (136-145) Potassium Level 2.8 mmol/L (3.5-5.1) 3.4 mmol/L (3.5-5.1) Chloride Level 109 mmol/L (98-107) 109 mmol/L (98-107) Carbon Dioxide Level 25 mmol/L (21-32) 27 mmol/L (21-32) Anion Gap 13 (6-14) 11 (6-14) Blood Urea Nitrogen 11 mg/dL (7-20) 12 mg/dL (7-20) Creatinine 0.9 mg/dL (0.6-1.0) 0.9 mg/dL (0.6-1.0) Estimated GFR (Cockcroft-Gault) 64.1 64.1 BUN/Creatinine Ratio 12 (6-20) Glucose Level 111 mg/dL (70-99) 100 mg/dL (70-99) Calcium Level 8.8 mg/dL (8.5-10.1) 8.1 mg/dL (8.5-10.1) Magnesium Level 1.7 mg/dL (1.8-2.4) 2.2 mg/dL (1.8-2.4) Total Bilirubin 0.4 mg/dL (0.2-1.0) Aspartate Amino Transf (AST/SGOT) 24 U/L (15-37) Alanine Aminotransferase (ALT/SGPT) 38 U/L (14-59) Alkaline Phosphatase 78 U/L (46-116) Troponin I Quantitative < 0.017 ng/mL (0.000-0.055) < 0.017 ng/mL (0.000-0.055) MH-Cow-D-Type Natriuretic Peptide 124 pg/mL (0-124) Total Protein 7.2 g/dL (6.4-8.2) Albumin 4.3 g/dL (3.4-5.0) Albumin/Globulin Ratio 1.5 (1.0-1.7) Lipase 168 U/L (73-393) Triglycerides Level 588 mg/dL (0-150) Cholesterol Level 174 mg/dL (0-200) LDL Cholesterol, Calculated mg/dL (0-100) VLDL Cholesterol, Calculated 118 mg/dL (0-40) Non-HDL Cholesterol Calculated 143 mg/dL (0-129) HDL Cholesterol 31 mg/dL (40-60) Cholesterol/HDL Ratio 5.6 Thyroid Stimulating Hormone (TSH) 4.226 uIU/mL (0.358-3.74) Assessment and Plan Assessmemt and Plan Problems Medical Problems: (1) Chest pain Status: Acute (2) Hypokalemia Status: Acute Comment Review of Relevant I have reviewed the following items russell (where applicable) has been applied. Labs Laboratory Tests Test 09/01/20 17:30 09/01/20 17:45 09/01/20 21:35 09/02/20 06:25 Urine Collection Type Unknown Urine Color Yellow Urine Clarity Hazy Urine pH 6.0 (<5.0-8.0) Urine Specific [place] >=1.030 (1.000-1.030) Urine Protein 30 mg/dL (NEG-TRACE) Urine Glucose (UA) Negative mg/dL (NEG) Urine Ketones (Stick) Trace mg/dL (NEG) Urine Blood Negative (NEG) Urine Nitrite Negative (NEG) Urine Bilirubin Small (NEG) Urine Urobilinogen Dipstick 0.2 mg/dL (0.2 mg/dL) Urine Leukocyte Esterase Negative (NEG) Urine RBC 0 /HPF (0-2) Urine WBC Occ /HPF (0-4) Urine Squamous Epithelial Cells Mod /LPF Urine Amorphous Sediment Present /HPF Urine Bacteria 0 /HPF (0-FEW) Urine Mucus Marked /LPF White Blood Count 6.8 x10^3/uL (4.0-11.0) Red Blood Count 4.14 x10^6/uL (3.50-5.40) Hemoglobin 12.6 g/dL (12.0-15.5) Hematocrit 35.9 % (36.0-47.0) Mean Corpuscular Volume 87 fL (79-100) Mean Corpuscular Hemoglobin 30 pg (25-35) Mean Corpuscular Hemoglobin Concent 35 g/dL (31-37) Red Cell Distribution Width 13.1 % (11.5-14.5) Platelet Count 259 x10^3/uL (140-400) Neutrophils (%) (Auto) 55 % (31-73) Lymphocytes (%) (Auto) 35 % (24-48) Monocytes (%) (Auto) 6 % (0-9) Eosinophils (%) (Auto) 3 % (0-3) Basophils (%) (Auto) 1 % (0-3) Neutrophils # (Auto) 3.7 x10^3/uL (1.8-7.7) Lymphocytes # (Auto) 2.4 x10^3/uL (1.0-4.8) Monocytes # (Auto) 0.4 x10^3/uL (0.0-1.1) Eosinophils # (Auto) 0.2 x10^3/uL (0.0-0.7) Basophils # (Auto) 0.1 x10^3/uL (0.0-0.2) Sodium Level 147 mmol/L (136-145) 147 mmol/L (136-145) Potassium Level 2.8 mmol/L (3.5-5.1) 3.4 mmol/L (3.5-5.1) Chloride Level 109 mmol/L (98-107) 109 mmol/L (98-107) Carbon Dioxide Level 25 mmol/L (21-32) 27 mmol/L (21-32) Anion Gap 13 (6-14) 11 (6-14) Blood Urea Nitrogen 11 mg/dL (7-20) 12 mg/dL (7-20) Creatinine 0.9 mg/dL (0.6-1.0) 0.9 mg/dL (0.6-1.0) Estimated GFR (Cockcroft-Gault) 64.1 64.1 BUN/Creatinine Ratio 12 (6-20) Glucose Level 111 mg/dL (70-99) 100 mg/dL (70-99) Calcium Level 8.8 mg/dL (8.5-10.1) 8.1 mg/dL (8.5-10.1) Magnesium Level 1.7 mg/dL (1.8-2.4) 2.2 mg/dL (1.8-2.4) Total Bilirubin 0.4 mg/dL (0.2-1.0) Aspartate Amino Transf (AST/SGOT) 24 U/L (15-37) Alanine Aminotransferase (ALT/SGPT) 38 U/L (14-59) Alkaline Phosphatase 78 U/L (46-116) Troponin I Quantitative < 0.017 ng/mL (0.000-0.055) < 0.017 ng/mL (0.000-0.055) GT-Qac-I-Type Natriuretic Peptide 124 pg/mL (0-124) Total Protein 7.2 g/dL (6.4-8.2) Albumin 4.3 g/dL (3.4-5.0) Albumin/Globulin Ratio 1.5 (1.0-1.7) Lipase 168 U/L (73-393) Triglycerides Level 588 mg/dL (0-150) Cholesterol Level 174 mg/dL (0-200) LDL Cholesterol, Calculated mg/dL (0-100) VLDL Cholesterol, Calculated 118 mg/dL (0-40) Non-HDL Cholesterol Calculated 143 mg/dL (0-129) HDL Cholesterol 31 mg/dL (40-60) Cholesterol/HDL Ratio 5.6 Thyroid Stimulating Hormone (TSH) 4.226 uIU/mL (0.358-3.74) Laboratory Tests Test 09/01/20 17:30 09/01/20 17:45 09/01/20 21:35 09/02/20 06:25 Urine Collection Type Unknown Urine Color Yellow Urine Clarity Hazy Urine pH 6.0 (<5.0-8.0) Urine Specific [place] >=1.030 (1.000-1.030) Urine Protein 30 mg/dL (NEG-TRACE) Urine Glucose (UA) Negative mg/dL (NEG) Urine Ketones (Stick) Trace mg/dL (NEG) Urine Blood Negative (NEG) Urine Nitrite Negative (NEG) Urine Bilirubin Small (NEG) Urine Urobilinogen Dipstick 0.2 mg/dL (0.2 mg/dL) Urine Leukocyte Esterase Negative (NEG) Urine RBC 0 /HPF (0-2) Urine WBC Occ /HPF (0-4) Urine Squamous Epithelial Cells Mod /LPF Urine Amorphous Sediment Present /HPF Urine Bacteria 0 /HPF (0-FEW) Urine Mucus Marked /LPF White Blood Count 6.8 x10^3/uL (4.0-11.0) Red Blood Count 4.14 x10^6/uL (3.50-5.40) Hemoglobin 12.6 g/dL (12.0-15.5) Hematocrit 35.9 % (36.0-47.0) Mean Corpuscular Volume 87 fL (79-100) Mean Corpuscular Hemoglobin 30 pg (25-35) Mean Corpuscular Hemoglobin Concent 35 g/dL (31-37) Red Cell Distribution Width 13.1 % (11.5-14.5) Platelet Count 259 x10^3/uL (140-400) Neutrophils (%) (Auto) 55 % (31-73) Lymphocytes (%) (Auto) 35 % (24-48) Monocytes (%) (Auto) 6 % (0-9) Eosinophils (%) (Auto) 3 % (0-3) Basophils (%) (Auto) 1 % (0-3) Neutrophils # (Auto) 3.7 x10^3/uL (1.8-7.7) Lymphocytes # (Auto) 2.4 x10^3/uL (1.0-4.8) Monocytes # (Auto) 0.4 x10^3/uL (0.0-1.1) Eosinophils # (Auto) 0.2 x10^3/uL (0.0-0.7) Basophils # (Auto) 0.1 x10^3/uL (0.0-0.2) Sodium Level 147 mmol/L (136-145) 147 mmol/L (136-145) Potassium Level 2.8 mmol/L (3.5-5.1) 3.4 mmol/L (3.5-5.1) Chloride Level 109 mmol/L (98-107) 109 mmol/L (98-107) Carbon Dioxide Level 25 mmol/L (21-32) 27 mmol/L (21-32) Anion Gap 13 (6-14) 11 (6-14) Blood Urea Nitrogen 11 mg/dL (7-20) 12 mg/dL (7-20) Creatinine 0.9 mg/dL (0.6-1.0) 0.9 mg/dL (0.6-1.0) Estimated GFR (Cockcroft-Gault) 64.1 64.1 BUN/Creatinine Ratio 12 (6-20) Glucose Level 111 mg/dL (70-99) 100 mg/dL (70-99) Calcium Level 8.8 mg/dL (8.5-10.1) 8.1 mg/dL (8.5-10.1) Magnesium Level 1.7 mg/dL (1.8-2.4) 2.2 mg/dL (1.8-2.4) Total Bilirubin 0.4 mg/dL (0.2-1.0) Aspartate Amino Transf (AST/SGOT) 24 U/L (15-37) Alanine Aminotransferase (ALT/SGPT) 38 U/L (14-59) Alkaline Phosphatase 78 U/L (46-116) Troponin I Quantitative < 0.017 ng/mL (0.000-0.055) < 0.017 ng/mL (0.000-0.055) DK-Zpr-B-Type Natriuretic Peptide 124 pg/mL (0-124) Total Protein 7.2 g/dL (6.4-8.2) Albumin 4.3 g/dL (3.4-5.0) Albumin/Globulin Ratio 1.5 (1.0-1.7) Lipase 168 U/L (73-393) Triglycerides Level 588 mg/dL (0-150) Cholesterol Level 174 mg/dL (0-200) LDL Cholesterol, Calculated mg/dL (0-100) VLDL Cholesterol, Calculated 118 mg/dL (0-40) Non-HDL Cholesterol Calculated 143 mg/dL (0-129) HDL Cholesterol 31 mg/dL (40-60) Cholesterol/HDL Ratio 5.6 Thyroid Stimulating Hormone (TSH) 4.226 uIU/mL (0.358-3.74) Medications Current Medications Aspirin (Roberto Aspirin) 325 mg 1X ONCE PO Last administered on 09/01/20at 18:09; Start 09/01/20 at 17:30; Stop 09/01/20 at 17:31; Status DC Fentanyl Citrate (Fentanyl 2ml Vial) 50 mcg 1X ONCE IV Last administered on 09/01/20at 18:09; Start 09/01/20 at 18:00; Stop 09/01/20 at 18:01; Status DC Ondansetron HCl (Zofran) 4 mg 1X ONCE IVP Last administered on 09/01/20at 18:44; Start 09/01/20 at 18:15; Stop 09/01/20 at 18:18; Status DC Potassium Chloride/Water 100 ml @ 50 mls/hr 1X ONCE IV ; Start 09/01/20 at 18:30; Stop 09/01/20 at 18:44; Status DC Potassium Chloride (Klor-Con) 40 meq 1X ONCE PO ; Start 09/01/20 at 18:30; Stop 09/01/20 at 18:44; Status DC Potassium Bicarbonate (Potassium Effervescent Tablet) 40 meq 1X ONCE PO Last administered on 09/01/20at 18:56; Start 09/01/20 at 19:00; Stop 09/01/20 at 19:01; Status DC Magnesium Sulfate 50 ml @ 25 mls/hr 1X ONCE IV Last administered on 09/01/20at 18:57; Start 09/01/20 at 19:00; Stop 09/01/20 at 20:59; Status DC Ondansetron HCl (Zofran) 4 mg PRN Q6HRS PRN IVP NAUSEA/VOMITING Last administered on 09/01/20at 22:59; Start 09/01/20 at 19:45 Al Hydroxide/Mg Hydroxide (Mylanta Plus Xs) 30 ml PRN Q3HRS PRN PO HEARTBURN / GAS; Start 09/01/20 at 19:45 Calcium Carbonate/ Glycine (Tums) 500 mg PRN Q3HRS PRN PO UPSET STOMACH; Start 09/01/20 at 19:45 Zolpidem Tartrate (Ambien) 5 mg PRN QHS PRN PO INSOMNIA, MAY REPEAT IN 1HR; Start 09/01/20 at 19:45 Info (Non-Icu Electrolyte Protocol) 1 ea PRN DAILY PRN MC SEE COMMENTS; Start 09/01/20 at 19:45 Hydromorphone HCl (Dilaudid) 0.4 mg PRN Q1HR PRN IV PAIN Last administered on 09/01/20at 22:50; Start 09/01/20 at 19:45 Acetaminophen (Tylenol) 650 mg PRN Q6HRS PRN PO Headaches, Temp > 101.5F; Start 09/01/20 at 19:45 Magnesium Hydroxide (Milk Of Magnesia) 2,400 mg PRN Q12HR PRN PO CONSTIPATION; Start 09/01/20 at 19:45 Bisacodyl (Dulcolax Supp) 10 mg PRN DAILY PRN SD CONSTIPATION; Start 09/01/20 at 19:45 Heparin Sodium (Porcine) (Heparin Sodium) 5,000 unit Q8HRS SQ Last administered on 09/02/20at 05:48; Start 09/01/20 at 22:00 Hydromorphone HCl (Dilaudid) 1 mg PRN Q3HRS PRN IVP CHEST PAIN; Start 09/01/20 at 19:45 EZETIMIBE (Zetia) 10 mg DAILY PO ; Start 09/02/20 at 09:00 Levothyroxine Sodium (Synthroid) 75 mcg DAILY06 PO Last administered on 09/02/20at 05:45; Start 09/02/20 at 06:00 Metoprolol Tartrate (Lopressor) 25 mg BID PO Last administered on 09/02/20at 08:15; Start 09/01/20 at 21:00 Sertraline HCl (Zoloft) 150 mg DAILY PO ; Start 09/02/20 at 09:00; Stop 09/01/20 at 20:06; Status DC Spironolactone (Aldactone) 50 mg DAILY PO Last administered on 09/02/20at 08:15; Start 09/02/20 at 09:00 Nitroglycerin (Nitrostat) 0.4 mg PRN Q5MIN PRN SL CHEST PAIN; Start 09/01/20 at 20:00 Sertraline HCl (Zoloft) 150 mg QHS PO Last administered on 09/01/20at 22:48; Start 09/01/20 at 21:00 Potassium Bicarbonate (Potassium Effervescent Tablet) 40 meq 1X ONCE PO Last administered on 09/02/20at 08:16; Start 09/02/20 at 08:00; Stop 09/02/20 at 08:01; Status DC Prochlorperazine Edisylate (Compazine) 5 mg PRN Q6HRS PRN IV NAUSEA/VOMITING Last administered on 09/02/20at 08:19; Start 09/02/20 at 08:00 Pantoprazole Sodium (Protonix) 40 mg BIDBFRMEAL PO ; Start 09/02/20 at 09:00 Active Scripts Active Reported Pantoprazole Sodium (Pantoprazole Sodium) 40 Mg Tablet.dr 40 Mg PO BIDBFRMEAL Multi Vitamin Daily (Multivitamin) 1 Each Tablet 1 Each PO DAILY Zoloft (Sertraline Hcl) 100 Mg Tablet 150 Mg PO DAILY Levothyroxine Sodium 75 Mcg Tablet 75 Mcg PO DAILYAC Metoprolol Tartrate 25 Mg Tablet 25 Mg PO BID Spironolactone 50 Mg Tablet 50 Mg PO DAILY Vitals/I & O Vital Sign - Last 24 Hours 6/2409/01/20 09/01/20 09/01/20 17:15 17:52 18:09 18:39 Temp 98.0 98.0 Pulse 87 68 Resp 16 26 19 17 B/P (MAP) 163/95 (117) 178/87 (117) Pulse Ox 100 99 98 96 O2 Delivery Room Air Room Air Room Air Room Air 09/01/20 09/01/20 09/01/20 09/01/20 18:41 18:52 19:22 19:52 Pulse 72 70 70 66 Resp 15 16 24 19 B/P (MAP) 175/89 (117) 186/85 (118) 164/87 (112) 141/65 (90) Pulse Ox 98 98 98 98 O2 Delivery Room Air Room Air Room Air Room Air 09/01/20 09/01/20 09/01/20 09/01/20 20:22 21:00 22:14 22:48 Temp 97.8 97.8 Pulse 68 69 69 Resp 19 18 B/P (MAP) 166/80 (108) 162/65 (97) 162/65 Pulse Ox 98 97 O2 Delivery Room Air Room Air 09/02/20 09/02/20 09/02/20 02:25 07:00 08:15 Temp 97.9 97.9 97.9 97.9 Pulse 61 72 75 Resp 18 18 B/P (MAP) 153/85 (107) 140/76 (97) Pulse Ox 97 98 O2 Delivery Room Air Intake and Output 09/01/20 09/01/20 09/02/20 15:00 23:00 07:00 Intake Total 50 ml 300 ml Balance 50 ml 300 ml Justicifation of Admission Dx: Justifications for Admission: Justification of Admission Dx: N/A NAVYA OCAMPO MD Sep 02, 2020 09:38
--- NOTE | 2020-09-02 10:34 | PDOC2 ---
COLTEN SNYDER WATER SERVICE DISPATCHER 09/02/20 1034: CARDIAC CONSULT DATE OF CONSULT Date of Consult DATE: 09/02/20 TIME: 10:15 REASON FOR CONSULT Reason for Consult: Chest pain REFERRING PHYSICIAN Referring Physician: Fullbright SOURCE Source: Chart review, Patient HISTORY OF PRESENT ILLNESS HISTORY OF PRESENT ILLNESS This is a pleasant 60 yo female admitted for complains of chest pain. Reports that this occurred yesterday at work. [place] like achy mid chest then she went home and was having achiness to her left arm. These are now absent. She does take daily 800 mg ibuprofen for joint pain and protonix. Denies heartburn. No CAMACHO and no issues with nausea or vomiting. She did feel like she was having hot flashes yesterday but no palpitations. Upon admission her BP was noted to be labile and her potassium was low which is not unusual for him with hx of hyperaldosteronism. She does have hypothyroidism and takes med for it. She has HTN and has stopped taking BP meds. No prior hx of CAD, VTE or arrhythmia PAST MEDICAL HISTORY Cardiovascular: HTN, Hyperlipidemia Pulmonary: No pertinent hx CENTRAL NERVOUS SYSTEM: Carpal Tunnel Syndrome GI: GERD Heme/Onc: Cancer (colon) Hepatobiliary: No pertinent hx Psych: No pertinent hx Musculoskeletal: Osteoarthritis Rheumatologic: No pertinent hx Infectious disease: No pertinent hx ENT: No pertinent hx Renal/: No pertinent hx Endocrine: Diabetes (pre), Hypothyroidism, Other (hyperaldosteronism) Dermatology: No pertinent hx PAST SURGICAL HISTORY Past Surgical History: Cholecystectomy, Hernia Repair (ventral), Colectomy (with ostomy and reversal) FAMILY HISTORY Family History: Coronary Artery Disease (CABG in her 80s mother) SOCIAL HISTORY Smoke: Quit (12 pk yr) ALCOHOL: none Drugs: None Lives: with Family CURRENT MEDICATIONS CURRENT MEDICATIONS Current Medications Medications (Trade) Dose Ordered Sig/Ga Route PRN Reason Start Time Stop Time Status Last Admin Dose Admin Aspirin (Roberto Aspirin) 325 mg 1X ONCE PO 09/01/20 17:30 09/01/20 17:31 DC 09/01/20 18:09 Fentanyl Citrate (Fentanyl 2ml Vial) 50 mcg 1X ONCE IV 09/01/20 18:00 09/01/20 18:01 DC 09/01/20 18:09 Ondansetron HCl (Zofran) 4 mg 1X ONCE IVP 09/01/20 18:15 09/01/20 18:18 DC 09/01/20 18:44 Potassium Bicarbonate (Potassium Effervescent Tablet) 40 meq 1X ONCE PO 09/01/20 19:00 09/01/20 19:01 DC 09/01/20 18:56 Magnesium Sulfate 50 ml @ 25 mls/hr 1X ONCE IV 09/01/20 19:00 09/01/20 20:59 DC 09/01/20 18:57 Ondansetron HCl (Zofran) 4 mg PRN Q6HRS PRN IVP NAUSEA/VOMITING 09/01/20 19:45 09/01/20 22:59 Hydromorphone HCl (Dilaudid) 0.4 mg PRN Q1HR PRN IV PAIN 09/01/20 19:45 09/01/20 22:50 Acetaminophen (Tylenol) 650 mg PRN Q6HRS PRN PO Headaches, Temp > 101.5F 09/01/20 19:45 09/02/20 09:50 Heparin Sodium (Porcine) (Heparin Sodium) 5,000 unit Q8HRS SQ 09/01/20 22:00 09/02/20 05:48 Levothyroxine Sodium (Synthroid) 75 mcg DAILY06 PO 09/02/20 06:00 09/02/20 05:45 Metoprolol Tartrate (Lopressor) 25 mg BID PO 09/01/20 21:00 09/02/20 08:15 Spironolactone (Aldactone) 50 mg DAILY PO 09/02/20 09:00 09/02/20 08:15 Sertraline HCl (Zoloft) 150 mg QHS PO 09/01/20 21:00 09/01/20 22:48 Potassium Bicarbonate (Potassium Effervescent Tablet) 40 meq 1X ONCE PO 09/02/20 08:00 09/02/20 08:01 DC 09/02/20 08:16 Prochlorperazine Edisylate (Compazine) 5 mg PRN Q6HRS PRN IV NAUSEA/VOMITING 09/02/20 08:00 09/02/20 08:19 Pantoprazole Sodium (Protonix) 40 mg BIDBFRMEAL PO 09/02/20 09:00 09/02/20 09:49 ALLERGIES ALLERGIES: Coded Allergies: morphine (Verified Allergy, Intermediate, Itching, 09/01/20) TOLERATES PERCOCET AND DILAUDID ROS Review of System 14 point ROS evla uated with pertinent positives noted per HPI PHYSICAL EXAM General: Alert, Oriented X3, Cooperative, No acute distress HEENT: Atraumatic, Mucous membr. moist/pink Lungs: Clear to auscultation, Normal air movement Heart: Regular rate (SR), Normal S1, Normal S2, No murmurs Abdomen: Soft, No tenderness Extremities: No cyanosis, No edema Skin: No breakdown, No significant lesion Neuro: Normal speech, Sensation intact Psych/Mental Status: Mental status NL, Mood NL MUSCULOSKELETAL: Osteoarthritic changes both hands VITALS/I&O VITALS/I&O: Vital Signs Date Time Temp Pulse Resp B/P (MAP) Pulse Ox O2 Delivery O2 Flow Rate FiO2 09/02/20 08:15 75 09/02/20 07:00 97.9 18 140/76 (97) 98 Room Air 97.9 I & O 0 09/01/20 09/01/20 09/02/20 15:00 23:00 07:00 Intake Total 50 ml 300 ml Balance 50 ml 300 ml LABS Lab: Laboratory Tests Test 09/01/20 17:30 09/01/20 17:45 09/01/20 21:35 09/02/20 06:25 Urine Collection Type Unknown Urine Color Yellow Urine Clarity Hazy Urine pH 6.0 (<5.0-8.0) Urine Specific [place] >=1.030 (1.000-1.030) Urine Protein 30 mg/dL (NEG-TRACE) Urine Glucose (UA) Negative mg/dL (NEG) Urine Ketones (Stick) Trace mg/dL (NEG) Urine Blood Negative (NEG) Urine Nitrite Negative (NEG) Urine Bilirubin Small (NEG) Urine Urobilinogen Dipstick 0.2 mg/dL (0.2 mg/dL) Urine Leukocyte Esterase Negative (NEG) Urine RBC 0 /HPF (0-2) Urine WBC Occ /HPF (0-4) Urine Squamous Epithelial Cells Mod /LPF Urine Amorphous Sediment Present /HPF Urine Bacteria 0 /HPF (0-FEW) Urine Mucus Marked /LPF White Blood Count 6.8 x10^3/uL (4.0-11.0) Red Blood Count 4.14 x10^6/uL (3.50-5.40) Hemoglobin 12.6 g/dL (12.0-15.5) Hematocrit 35.9 % (36.0-47.0) L Mean Corpuscular Volume 87 fL (79-100) Mean Corpuscular Hemoglobin 30 pg (25-35) Mean Corpuscular Hemoglobin Concent 35 g/dL (31-37) Red Cell Distribution Width 13.1 % (11.5-14.5) Platelet Count 259 x10^3/uL (140-400) Neutrophils (%) (Auto) 55 % (31-73) Lymphocytes (%) (Auto) 35 % (24-48) Monocytes (%) (Auto) 6 % (0-9) Eosinophils (%) (Auto) 3 % (0-3) Basophils (%) (Auto) 1 % (0-3) Neutrophils # (Auto) 3.7 x10^3/uL (1.8-7.7) Lymphocytes # (Auto) 2.4 x10^3/uL (1.0-4.8) Monocytes # (Auto) 0.4 x10^3/uL (0.0-1.1) Eosinophils # (Auto) 0.2 x10^3/uL (0.0-0.7) Basophils # (Auto) 0.1 x10^3/uL (0.0-0.2) Sodium Level 147 mmol/L (136-145) H 147 mmol/L (136-145) H Potassium Level 2.8 mmol/L (3.5-5.1) *L 3.4 mmol/L (3.5-5.1) L Chloride Level 109 mmol/L (98-107) H 109 mmol/L (98-107) H Carbon Dioxide Level 25 mmol/L (21-32) 27 mmol/L (21-32) Anion Gap 13 (6-14) 11 (6-14) Blood Urea Nitrogen 11 mg/dL (7-20) 12 mg/dL (7-20) Creatinine 0.9 mg/dL (0.6-1.0) 0.9 mg/dL (0.6-1.0) Estimated GFR (Cockcroft-Gault) 64.1 64.1 BUN/Creatinine Ratio 12 (6-20) Glucose Level 111 mg/dL (70-99) H 100 mg/dL (70-99) H Calcium Level 8.8 mg/dL (8.5-10.1) 8.1 mg/dL (8.5-10.1) L Magnesium Level 1.7 mg/dL (1.8-2.4) L 2.2 mg/dL (1.8-2.4) Total Bilirubin 0.4 mg/dL (0.2-1.0) Aspartate Amino Transferase (AST) 24 U/L (15-37) Alanine Aminotransferase (ALT) 38 U/L (14-59) Alkaline Phosphatase 78 U/L (46-116) Troponin I Quantitative < 0.017 ng/mL (0.000-0.055) < 0.017 ng/mL (0.000-0.055) CF-Wgw-M-Type Natriuretic Peptide 124 pg/mL (0-124) Total Protein 7.2 g/dL (6.4-8.2) Albumin 4.3 g/dL (3.4-5.0) Albumin/Globulin Ratio 1.5 (1.0-1.7) Lipase 168 U/L (73-393) Triglycerides Level 588 mg/dL (0-150) H Cholesterol Level 174 mg/dL (0-200) LDL Cholesterol, Calculated mg/dL (0-100) VLDL Cholesterol, Calculated 118 mg/dL (0-40) H Non-HDL Cholesterol Calculated 143 mg/dL (0-129) H HDL Cholesterol 31 mg/dL (40-60) L Cholesterol/HDL Ratio 5.6 Thyroid Stimulating Hormone (TSH) 4.226 uIU/mL (0.358-3.74) H Laboratory Tests 09/01/20 17:45 Laboratory Tests 09/01/20 17:45 09/02/20 06:25 ASSESSMENT/PLAN ASSESSMENT/PLAN 1. Chest pain: trops nml 2. HTN: labile episodes 3. Hyperaldosteronism 4. Hypokalemia/hypomagnesemia 5. HLP: high TG 6. Hypothyroidism: TSH not on goal per PCP Recommendations 1. K and Mg replacement given. Continue home aldactone and start on lisinopril. Continue metoprolol 2. Discussed minimizing ibuprofen use. Start on ASA 3. Continue zetia and start on statin. Will need Vascepa. dietitian consult 4. MPI vs LHC discussed and would prefer to have MPI. If TTE is unremarkable then will plan for outpt stres test. RAJWINDER AGUILAR MD 09/05/20 0958: CARDIAC CONSULT ASSESSMENT/PLAN ASSESSMENT/PLAN Late entry for 09/02/20. The patient was seen and interviewed as well as examined at the bedside. The chart was reviewed. The case was discussed. Agree with the plan of care. COLTEN SNYDER APRN Sep 02, 2020 10:34 RAJWINDER AGUILAR MD Sep 05, 2020 09:58
[2020-09-02 11:00] VITALS: BP 140/81
[2020-09-02] MEDS ORDERED: LISINOPRIL 5 MG TABLET. PO SCH (11:00)
--- NOTE | 2020-09-02 11:19 | NUR ---
SS following for discharge planning. SS reviewed pt chart and discussed with pt RN. Pt is from home with spouse and is currently on room air. Cardiology consulted. Discharge plan is to home when medically ready. SS will continue to follow for discharge planning.
[2020-09-02] MEDS ORDERED: ASPIRIN ENTERIC COATED 81 MG TABLET.DR. PO SCH (12:00)
--- NOTE | 2020-09-02 12:40 | CARD ---
MR#: [id number] Date of Study: 09/02/2020 Ordering Physician: LOTTIE GREENE, Referring Physician: LOTTIE GREENE Tech: Gama Bullard [facility] APPROVED REPORT EXAM: Two-dimensional and M-mode echocardiogram with Doppler and color Doppler. Other Information Quality : GoodHR: 62bpm Rhythm : NSR INDICATION Chest Pain Echo Enhancing Agent Agent/Amount Used: Lumason mL 2D DIMENSIONS Left Atrium(2D)3.3 (1.6-4.0cm)IVSd0.8 (0.7-1.1cm) Aortic Root(2D)2.8 (2.0-3.7cm)LVDd4.3 (3.9-5.9cm) LVOT Diameter1.8 (1.8-2.4cm)PWd0.9 (0.7-1.1cm) LVDs2.3 (2.5-4.0cm)FS (%) 45.5 % SV63.2 mlLVEF(%)77.2 (>50%) Aortic Valve AoV Peak Shay.112.4cm/sAoV VTI27.6cm AO Peak GR.5.1mmHgLVOT Peak Shay.80.2cm/s LVOT VTI 18.73cmAO Mean GR.3mmHg OSCAR (VMAX)1.16lx5BDT (VTI)1.76cm2 Mitral Valve MV E Umqhxiru828.6cm/sMV E Peak Gr.4mmHg MV DECEL [id number] A Purrvsao68.8cm/s MV ETT95keP/A Ratio2.0 MVA (PHT)5.39cm2 TDI E/Lateral E'11.3E/Medial E'11.5 Pulmonary Valve PV Peak Gxnqcsez90.6cm/sPV Peak Grad.2mmHg Tricuspid Valve TR P. Dskeunpn250xm/sTR Peak Gr.26mmHg LEFT VENTRICLE The left ventricle is normal size. There is normal left ventricular wall thickness. The left ventricu lar systolic function is normal and the ejection fraction is within normal range. EF 55% There is nor mal LV segmental wall motion. The left ventricular diastolic function and filling is normal for age. No left ventricle thrombus noted on this study. There is no ventricular septal defect visualized. The re is no left ventricular aneurysm. There is no mass noted in the left ventricle. RIGHT VENTRICLE The right ventricle is normal size. There is normal right ventricular wall thickness. The right ventr icular systolic function is normal. ATRIA The left atrium is mildly dilated. The right atrium size is normal. The interatrial septum is intact with no evidence for an atrial septal defect or patent foramen ovale as noted on 2-D or Doppler imagi ng. AORTIC VALVE The aortic valve is normal in structure and function. Doppler and Color Flow revealed no significant aortic regurgitation. There is no significant aortic valvular stenosis. There is no aortic valvular v egetation. MITRAL VALVE The mitral valve is normal in structure and function. There is no evidence of mitral valve prolapse. There is no mitral valve stenosis. Doppler and Color-flow revealed trace mitral regurgitation. TRICUSPID VALVE The tricuspid valve is normal in structure and function. Doppler and Color Flow revealed trace tricus pid regurgitation. There is no tricuspid valve prolapse or vegetation. There is no tricuspid valve st enosis. PULMONIC VALVE Doppler and Color Flow revealed no pulmonic valvular regurgitation. There is no pulmonic valvular lyric nosis. GREAT VESSELS The aortic root is normal in size. The ascending aorta is normal in size. The IVC is normal in size a nd collapses >50% with inspiration. PERICARDIAL EFFUSION There is no pleural effusion. There is no evidence of significant pericardial effusion. Critical Notification Critical Value: No <Conclusion> The left ventricular systolic function is normal and the ejection fraction is within normal range. EF 55% There is normal LV segmental wall motion. Signed by : Dustin Lock, Electronically Approved : 09/02/2020 12:39:54
--- NOTE | 2020-09-02 14:39 | PDOC3 ---
Discharge Summary Date of Admission: Sep 01, 2020 Date of Discharge: Sep 02, 2020 Follow-Up: 3-5 days Admitting Diagnosis comment: CONSULTS CARDIOLOGY PROCEDURES ECHO COMPLICATIONS NONE D/C CONDITION GOOD SEE CARDIOLOGY SOON FOR STRESS TESTING D/C DIET HEART HEALTHY ACTIVITY BOWEN DISCHARGE DX Assessment/Plan Unstable angina Hypokalemia Hypomagnesemia HLD HTN Hyperaldosteronism History anxiety/depression Plan: Initial troponin <0.017; will continue to trend., consult cardiology Consultation placed to cardiology Provide Dilaudid as needed due to morphine allergy, nitroglycerin as needed Echocardiogram pending Replace electrolytes; hypokalemia may be etiology of current chest pain given similar previous presentation. Telemetry Resume home medications FEN - Cardiac diet PPX - Heparin DNI Dispo - inpatient for above ECHO Consult cardiology , home if echo ok, out pt STRESS TESTING D/W JUN History of Present Illness History of Present Illness Identification/Chief Complaint Chief Complaint Chest pain Source Source: Patient History of Present Illness History of Present Illness Patient is a 60-year-old female with past medical history HLD, HTN, hyperaldosteronism, stage IV colon cancer, short bowel syndrome, who presents to the ED with complaints of chest pain that began today around noon. 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 She reports aching chest pain, 5/10, that progressed and radiated to her left arm. She also reports associated decreased appetite. She is taken ibuprofen for symptoms without improvement. Upon evaluation in the ED initial troponin <0.017, potassium 2.8, sodium 147, magnesium 1.7. EKG largely unrevealing. She received IV fentanyl for symptoms without improvement. She does report a history of similar symptoms when she was first diagnosed with hyperaldosteronism and her potassium was equally low. Since that time she has been taking spironolactone with improvement in her potassium. Will admit patient for further medical management. Past Medical History Past Medical History Hyperaldosteronism, history of stage IV colon cancer, HTN, HLD, short gut syndrome, hypothyroidism, anxiety/depression Past Surgical History Past Surgical History Hemicolectomy, cecectomy, polypectomy Past Surgical History: Hernia Repair Family History Family History: Cancer, Coronary Artery Disease Social History Smoke: Quit ALCOHOL: none Drugs: None Current Problem List Problem List Problems Medical Problems: (1) Chest pain Status: Acute (2) Hypokalemia Status: Acute Current Medications Current Medications Current Medications Aspirin (Roberto Aspirin) 325 mg 1X ONCE PO Last administered on 09/01/20at 18:09; Start 09/01/20 at 17:30; Stop 09/01/20 at 17:31; Status DC Fentanyl Citrate (Fentanyl 2ml Vial) 50 mcg 1X ONCE IV Last administered on 09/01/20at 18:09; Start 09/01/20 at 18:00; Stop 09/01/20 at 18:01; Status DC Ondansetron HCl (Zofran) 4 mg 1X ONCE IVP Last administered on 09/01/20at 1 8:44; Start 09/01/20 at 18:15; Stop 09/01/20 at 18:18; Status DC Potassium Chloride/Water 100 ml @ 50 mls/hr 1X ONCE IV ; Start 09/01/20 at 18:30; Stop 09/01/20 at 18:44; Status DC Potassium Chloride (Klor-Con) 40 meq 1X ONCE PO ; Start 09/01/20 at 18:30; Stop 09/01/20 at 18:44; Status DC Potassium Bicarbonate (Potassium Effervescent Tablet) 40 meq 1X ONCE PO Last administered on 09/01/20at 18:56; Start 09/01/20 at 19:00; Stop 09/01/20 at 19:01; Status DC Magnesium Sulfate 50 ml @ 25 mls/hr 1X ONCE IV Last administered on 09/01/20at 18:57; Start 09/01/20 at 19:00; Stop 09/01/20 at 20:59 Active Scripts Active Diclofenac Sodium 50 Mg Tablet.dr 1 Tab PO BID Reported [place] 5-325 Tablet (Acetaminophen/Hydrocodone Bitart) 1 Each Tablet 1-2 Tab PO Q6HRS Ezetimibe 10 Mg Tablet 1 Tab PO DAILY Pantoprazole Sodium (Pantoprazole Sodium) 40 Mg Tablet.dr 40 Mg PO DAILYAC Multi Vitamin Daily (Multivitamin) 1 Each Tablet 1 Each PO DAILY Zoloft (Sertraline Hcl) 100 Mg Tablet 150 Mg PO DAILY Levothyroxine Sodium 75 Mcg Tablet 75 Mcg PO DAILYAC Metoprolol Tartrate 25 Mg Tablet 25 Mg PO BID Spironolactone 50 Mg Tablet 50 Mg PO DAILY Allergies Allergies: Coded Allergies: morphine (Verified Allergy, Intermediate, Itching, 11/13/19) ROS Review of System GENERAL: No history of weight change, weakness or fevers. SKIN: No bruising, hair changes or rashes. EYES: No blurred, double or loss of vision. NOSE AND THROAT: No history of nosebleeds, hoarseness or sore throat. HEART: Chest pain. Denies palpitations. LUNGS: Denies cough, hemoptysis, wheezing or shortness of breath. GASTROINTESTINAL: Decreased appetite. Denies nausea, vomiting, abdominal pain. GENITOURINARY: Denies dysuria, frequency, urgency, hematuria. NEUROLOGIC: Denies history of numbness, tingling, tremor or weakness. PSYCHIATRIC: Denies anxiety, denies depression. ENDOCRINE: No history of heat or cold intolerance, polyuria or polydipsia. EXTREMITIES: Denies muscle weakness, joint pain, pain on walking or stiffness. Vitals Vitals Vital Signs Date Time Temp Pulse Resp B/P (MAP) Pulse Ox O2 Delivery O2 Flow Rate FiO2 09/02/20 08:15 75 09/02/20 07:00 97.9 18 140/76 (97) 98 Room Air 97.9 Physical Exam Physical Exam Physical Exam General: Alert, Oriented X3, Cooperative, No acute distress HEENT: PERRLA, EOMI Lungs: Clear to auscultation, Normal air movement Heart: RRR, systolic murmur Cardiovascular: S1, S2 Abdomen: Normal bowel sounds, Soft, No tenderness Extremities: Bilateral lower extremity edema. No clubbing, No cyanosis Skin: No rashes, No significant lesion Neuro: Normal speech, Normal tone, Sensation intact Psych/Mental Status: Mental status NL, Mood NL General: Alert, Oriented X3, Cooperative, No acute distress Heart: Regular rate Extremities: No clubbing, No cyanosis Labs LABS Signed PATIENT: BALBIR FELTON ACCOUNT: [id number] : 1960 LOCATION: CT AGE: 57 SEX: F EXAM STATUS: REG CLI ORD. PHYSICIAN: DAHLIA HOEP MD REASON: CECUM MASS PROCEDURE: CT ABD PELV W/ORAL&IV CONTRAST CT study of the abdomen and pelvis with contrast Clinical indications: Cecal mass. TECHNIQUE: After IV infusion of 75 cc of Omnipaque 300, helical CT scanning of the abdomen and pelvis was performed. GI contrast was administered per mouth. PQRS compliance Statement One or more of the following individualized dose reduction techniques were utilized for this study: 1. Automated exposure control 2. Adjustment of the mA and/or kV according to patient size 3. Use of iterative reconstruction technique COMPARISON: None available. FINDINGS: Resection of the right lobe liver is seen. The rest of the liver is unremarkable. Spleen is not enlarged. Pancreas is unremarkable. No biliary ductal dilatation is seen. The gallbladder is surgically absent. No adrenal mass is seen. Bilateral renal cysts are seen. No hydronephrosis or hydroureter is evident on either side. Urinary bladder is not abnormally distended. No focal aneurysmal dilatation of the abdominal aorta is seen. No enlarged abdominal or pelvic lymphadenopathy is seen. Bilateral ovarian cysts are seen. Cyst of the left ovary measures 1.6 cm in size. Cyst of the right ovary measures 3.2 cm in size. No uterine mass or fibroid is seen. A low anastomosis of the rectal region is seen. No inflammatory change or free fluid or abscess is seen here. No mesenteric edema or free fluid or free air is seen throughout the abdomen. There is diffuse wall thickening of the colon. Lipoma of the ileocecal valve is seen. There is a round filling defect of the medial posterior wall of the cecum which measures 2.9 cm in greatest dimension. No pericolonic extension is seen. Terminal ileum is unremarkable. No obstructive bowel pattern is seen. Midline abdominal wall protrusion is evident but the overlying fascia appears intact. No lung base consolidation is evident. Grade 1-2 anterolisthesis of L5-S1 is seen secondary to bilateral spondylolysis of L5. No lytic process is seen. IMPRESSION: 2.9 cm filling defect or mass of the cecum is seen without pericolonic extension. In addition, there is diffuse wall thickening of the colon and rectosigmoid region. This could be due to incomplete distention or colitis. Surgical resection of the right lobe of the liver. Rest of the liver is unremarkable. Bilateral ovarian cysts. Bilateral spondylolysis of L5 resulting in grade 1-2 anterolisthesis of L5-S1. Electronically signed by: Ignacio Trevizo MD (04/04/2018 4:14 PM) [place] [id number] D/C PLANNING 33 MIN FINAL DIAGNOSIS Problems Medical Problems: (1) Chest pain Status: Acute (2) Hypokalemia Status: Acute Brief Hospital Course Ms. Felton is a 60 old [sex] who presented with [ CHEST PAIN] CONDITION AT DISCHARGE: Improved Discharge Medications Current Medications Aspirin (Roberto Aspirin) 325 mg 1X ONCE PO Last administered on 09/01/20at 18:09; Start 09/01/20 at 17:30; Stop 09/01/20 at 17:31; Status DC Fentanyl Citrate (Fentanyl 2ml Vial) 50 mcg 1X ONCE IV Last administered on 09/01/20at 18:09; Start 09/01/20 at 18:00; Stop 09/01/20 at 18:01; Status DC Ondansetron HCl (Zofran) 4 mg 1X ONCE IVP Last administered on 09/01/20at 18:44; Start 09/01/20 at 18:15; Stop 09/01/20 at 18:18; Status DC Potassium Chloride/Water 100 ml @ 50 mls/hr 1X ONCE IV ; Start 09/01/20 at 18:30; Stop 09/01/20 at 18:44; Status DC Potassium Chloride (Klor-Con) 40 meq 1X ONCE PO ; Start 09/01/20 at 18:30; Stop 09/01/20 at 18:44; Status DC Potassium Bicarbonate (Potassium Effervescent Tablet) 40 meq 1X ONCE PO Last administered on 09/01/20at 18:56; Start 09/01/20 at 19:00; Stop 09/01/20 at 19:01; Status DC Magnesium Sulfate 50 ml @ 25 mls/hr 1X ONCE IV Last administered on 09/01/20at 18:57; Start 09/01/20 at 19:00; Stop 09/01/20 at 20:59; Status DC Ondansetron HCl (Zofran) 4 mg PRN Q6HRS PRN IVP NAUSEA/VOMITING Last administered on 09/01/20at 22:59; Start 09/01/20 at 19:45 Al Hydroxide/Mg Hydroxide (Mylanta Plus Xs) 30 ml PRN Q3HRS PRN PO HEARTBURN / GAS; Start 09/01/20 at 19:45 Calcium Carbonate/ Glycine (Tums) 500 mg PRN Q3HRS PRN PO UPSET STOMACH; Start 09/01/20 at 19:45 Zolpidem Tartrate (Ambien) 5 mg PRN QHS PRN PO INSOMNIA, MAY REPEAT IN 1HR; Start 09/01/20 at 19:45 Info (Non-Icu Electrolyte Protocol) 1 ea PRN DAILY PRN MC SEE COMMENTS; Start 09/01/20 at 19:45 Hydromorphone HCl (Dilaudid) 0.4 mg PRN Q1HR PRN IV PAIN Last administered on 09/01/20at 22:50; Start 09/01/20 at 19:45 Acetaminophen (Tylenol) 650 mg PRN Q6HRS PRN PO Headaches, Temp > 101.5F Last administered on 09/02/20at 09:50; Start 09/01/20 at 19:45 Magnesium Hydroxide (Milk Of Magnesia) 2,400 mg PRN Q12HR PRN PO CONSTIPATION; Start 09/01/20 at 19:45 Bisacodyl (Dulcolax Supp) 10 mg PRN DAILY PRN [place] CONSTIPATION; Start 09/01/20 at 19:45 Heparin Sodium (Porcine) (Heparin Sodium) 5,000 unit Q8HRS SQ Last administered on 09/02/20at 05:48; Start 09/01/20 at 22:00 Hydromorphone HCl (Dilaudid) 1 mg PRN Q3HRS PRN IVP CHEST PAIN; Start 09/01/20 at 19:45 EZETIMIBE (Zetia) 10 mg DAILY PO ; Start 09/02/20 at 09:00 Levothyroxine Sodium (Synthroid) 75 mcg DAILY06 PO Last administered on 09/02/20at 05:45; Start 09/02/20 at 06:00 Metoprolol Tartrate (Lopressor) 25 mg BID PO Last administered on 09/02/20at 08:15; Start 09/01/20 at 21:00 Sertraline HCl (Zoloft) 150 mg DAILY PO ; Start 09/02/20 at 09:00; Stop 09/01/20 at 20:06; Status DC Spironolactone (Aldactone) 50 mg DAILY PO Last administered on 09/02/20at 08:15; Start 09/02/20 at 09:00 Nitroglycerin (Nitrostat) 0.4 mg PRN Q5MIN PRN SL CHEST PAIN; Start 09/01/20 at 20:00 Sertraline HCl (Zoloft) 150 mg QHS PO Last administered on 09/01/20at 22:48; Start 09/01/20 at 21:00 Potassium Bicarbonate (Potassium Effervescent Tablet) 40 meq 1X ONCE PO Last administered on 09/02/20at 08:16; Start 09/02/20 at 08:00; Stop 09/02/20 at 08:01; Status DC Prochlorperazine Edisylate (Compazine) 5 mg PRN Q6HRS PRN IV NAUSEA/VOMITING Last administered on 09/02/20at 08:19; Start 09/02/20 at 08:00 Pantoprazole Sodium (Protonix) 40 mg BIDBFRMEAL PO Last administered on 09/02/20at 09:49; Start 09/02/20 at 09:00 Atorvastatin Calcium (Lipitor) 40 mg QHS PO ; Start 09/02/20 at 21:00 Lisinopril (Prinivil) 5 mg DAILY PO Last administered on 09/02/20at 12:16; Start 09/02/20 at 11:00 Aspirin (Ecotrin) 81 mg DAILYWBKFT PO Last administered on 09/02/20at 12:15; Start 09/02/20 at 12:00 Active Scripts Active Reported Pantoprazole Sodium (Pantoprazole Sodium) 40 Mg Tablet.dr 40 Mg PO BIDBFRMEAL Multi Vitamin Daily (Multivitamin) 1 Each Tablet 1 Each PO DAILY Zoloft (Sertraline Hcl) 100 Mg Tablet 150 Mg PO DAILY Levothyroxine Sodium 75 Mcg Tablet 75 Mcg PO DAILYAC Metoprolol Tartrate 25 Mg Tablet 25 Mg PO BID Spironolactone 50 Mg Tablet 50 Mg PO DAILY Vital Signs Vital Signs Date Time Temp Pulse Resp B/P (MAP) Pulse Ox O2 Delivery O2 Flow Rate FiO2 09/02/20 12:16 80 09/02/20 11:00 97.9 16 140/81 (100) 98 Room Air 97.9 Labs Laboratory Tests Test 09/01/20 17:30 09/01/20 17:45 09/01/20 21:35 09/02/20 06:25 Urine Collection Type Unknown Urine Color Yellow Urine Clarity Hazy Urine pH 6.0 (<5.0-8.0) Urine Specific Stuart >=1.030 (1.000-1.030) Urine Protein 30 mg/dL (NEG-TRACE) Urine Glucose (UA) Negative mg/dL (NEG) Urine Ketones (Stick) Trace mg/dL (NEG) Urine Blood Negative (NEG) Urine Nitrite Negative (NEG) Urine Bilirubin Small (NEG) Urine Urobilinogen Dipstick 0.2 mg/dL (0.2 mg/dL) Urine Leukocyte Esterase Negative (NEG) Urine RBC 0 /HPF (0-2) Urine WBC Occ /HPF (0-4) Urine Squamous Epithelial Cells Mod /LPF Urine Amorphous Sediment Present /HPF Urine Bacteria 0 /HPF (0-FEW) Urine Mucus Marked /LPF White Blood Count 6.8 x10^3/uL (4.0-11.0) Red Blood Count 4.14 x10^6/uL (3.50-5.40) Hemoglobin 12.6 g/dL (12.0-15.5) Hematocrit 35.9 % (36.0-47.0) Mean Corpuscular Volume 87 fL (79-100) Mean Corpuscular Hemoglobin 30 pg (25-35) Mean Corpuscular Hemoglobin Concent 35 g/dL (31-37) Red Cell Distribution Width 13.1 % (11.5-14.5) Platelet Count 259 x10^3/uL (140-400) Neutrophils (%) (Auto) 55 % (31-73) Lymphocytes (%) (Auto) 35 % (24-48) Monocytes (%) (Auto) 6 % (0-9) Eosinophils (%) (Auto) 3 % (0-3) Basophils (%) (Auto) 1 % (0-3) Neutrophils # (Auto) 3.7 x10^3/uL (1.8-7.7) Lymphocytes # (Auto) 2.4 x10^3/uL (1.0-4.8) Monocytes # (Auto) 0.4 x10^3/uL (0.0-1.1) Eosinophils # (Auto) 0.2 x10^3/uL (0.0-0.7) Basophils # (Auto) 0.1 x10^3/uL (0.0-0.2) Sodium Level 147 mmol/L (136-145) 147 mmol/L (136-145) Potassium Level 2.8 mmol/L (3.5-5.1) 3.4 mmol/L (3.5-5.1) Chloride Level 109 mmol/L (98-107) 109 mmol/L (98-107) Carbon Dioxide Level 25 mmol/L (21-32) 27 mmol/L (21-32) Anion Gap 13 (6-14) 11 (6-14) Blood Urea Nitrogen 11 mg/dL (7-20) 12 mg/dL (7-20) Creatinine 0.9 mg/dL (0.6-1.0) 0.9 mg/dL (0.6-1.0) Estimated GFR (Cockcroft-Gault) 64.1 64.1 BUN/Creatinine Ratio 12 (6-20) Glucose Level 111 mg/dL (70-99) 100 mg/dL (70-99) Calcium Level 8.8 mg/dL (8.5-10.1) 8.1 mg/dL (8.5-10.1) Magnesium Level 1.7 mg/dL (1.8-2.4) 2.2 mg/dL (1.8-2.4) Total Bilirubin 0.4 mg/dL (0.2-1.0) Aspartate Amino Transf (AST/SGOT) 24 U/L (15-37) Alanine Aminotransferase (ALT/SGPT) 38 U/L (14-59) Alkaline Phosphatase 78 U/L (46-116) Troponin I Quantitative < 0.017 ng/mL (0.000-0.055) < 0.017 ng/mL (0.000-0.055) FY-Qfl-D-Type Natriuretic Peptide 124 pg/mL (0-124) Total Protein 7.2 g/dL (6.4-8.2) Albumin 4.3 g/dL (3.4-5.0) Albumin/Globulin Ratio 1.5 (1.0-1.7) Lipase 168 U/L (73-393) Triglycerides Level 588 mg/dL (0-150) Cholesterol Level 174 mg/dL (0-200) LDL Cholesterol, Calculated mg/dL (0-100) VLDL Cholesterol, Calculated 118 mg/dL (0-40) Non-HDL Cholesterol Calculated 143 mg/dL (0-129) HDL Cholesterol 31 mg/dL (40-60) Cholesterol/HDL Ratio 5.6 Thyroid Stimulating Hormone (TSH) 4.226 uIU/mL (0.358-3.74) Laboratory Tests Test 09/01/20 17:30 09/01/20 17:45 09/01/20 21:35 09/02/20 06:25 Urine Collection Type Unknown Urine Color Yellow Urine Clarity Hazy Urine pH 6.0 (<5.0-8.0) Urine Specific Stuart >=1.030 (1.000-1.030) Urine Protein 30 mg/dL (NEG-TRACE) Urine Glucose (UA) Negative mg/dL (NEG) Urine Ketones (Stick) Trace mg/dL (NEG) Urine Blood Negative (NEG) Urine Nitrite Negative (NEG) Urine Bilirubin Small (NEG) Urine Urobilinogen Dipstick 0.2 mg/dL (0.2 mg/dL) Urine Leukocyte Esterase Negative (NEG) Urine RBC 0 /HPF (0-2) Urine WBC Occ /HPF (0-4) Urine Squamous Epithelial Cells Mod /LPF Urine Amorphous Sediment Present /HPF Urine Bacteria 0 /HPF (0-FEW) Urine Mucus Marked /LPF White Blood Count 6.8 x10^3/uL (4.0-11.0) Red Blood Count 4.14 x10^6/uL (3.50-5.40) Hemoglobin 12.6 g/dL (12.0-15.5) Hematocrit 35.9 % (36.0-47.0) Mean Corpuscular Volume 87 fL (79-100) Mean Corpuscular Hemoglobin 30 pg (25-35) Mean Corpuscular Hemoglobin Concent 35 g/dL (31-37) Red Cell Distribution Width 13.1 % (11.5-14.5) Platelet Count 259 x10^3/uL (140-400) Neutrophils (%) (Auto) 55 % (31-73) Lymphocytes (%) (Auto) 35 % (24-48) Monocytes (%) (Auto) 6 % (0-9) Eosinophils (%) (Auto) 3 % (0-3) Basophils (%) (Auto) 1 % (0-3) Neutrophils # (Auto) 3.7 x10^3/uL (1.8-7.7) Lymphocytes # (Auto) 2.4 x10^3/uL (1.0-4.8) Monocytes # (Auto) 0.4 x10^3/uL (0.0-1.1) Eosinophils # (Auto) 0.2 x10^3/uL (0.0-0.7) Basophils # (Auto) 0.1 x10^3/uL (0.0-0.2) Sodium Level 147 mmol/L (136-145) 147 mmol/L (136-145) Potassium Level 2.8 mmol/L (3.5-5.1) 3.4 mmol/L (3.5-5.1) Chloride Level 109 mmol/L (98-107) 109 mmol/L (98-107) Carbon Dioxide Level 25 mmol/L (21-32) 27 mmol/L (21-32) Anion Gap 13 (6-14) 11 (6-14) Blood Urea Nitrogen 11 mg/dL (7-20) 12 mg/dL (7-20) Creatinine 0.9 mg/dL (0.6-1.0) 0.9 mg/dL (0.6-1.0) Estimated GFR (Cockcroft-Gault) 64.1 64.1 BUN/Creatinine Ratio 12 (6-20) Glucose Level 111 mg/dL (70-99) 100 mg/dL (70-99) Calcium Level 8.8 mg/dL (8.5-10.1) 8.1 mg/dL (8.5-10.1) Magnesium Level 1.7 mg/dL (1.8-2.4) 2.2 mg/dL (1.8-2.4) Total Bilirubin 0.4 mg/dL (0.2-1.0) Aspartate Amino Transf (AST/SGOT) 24 U/L (15-37) Alanine Aminotransferase (ALT/SGPT) 38 U/L (14-59) Alkaline Phosphatase 78 U/L (46-116) Troponin I Quantitative < 0.017 ng/mL (0.000-0.055) < 0.017 ng/mL (0.000-0.055) NZ-Vca-M-Type Natriuretic Peptide 124 pg/mL (0-124) Total Protein 7.2 g/dL (6.4-8.2) Albumin 4.3 g/dL (3.4-5.0) Albumin/Globulin Ratio 1.5 (1.0-1.7) Lipase 168 U/L (73-393) Triglycerides Level 588 mg/dL (0-150) Cholesterol Level 174 mg/dL (0-200) LDL Cholesterol, Calculated mg/dL (0-100) VLDL Cholesterol, Calculated 118 mg/dL (0-40) Non-HDL Cholesterol Calculated 143 mg/dL (0-129) HDL Cholesterol 31 mg/dL (40-60) Cholesterol/HDL Ratio 5.6 Thyroid Stimulating Hormone (TSH) 4.226 uIU/mL (0.358-3.74) Allergies Allergies Coded Allergies Type Severity Reaction Last Updated Verified morphine Allergy Intermediate Itching 09/01/20 Yes Disposition/Orders: D/C to Home Justicifation of Admission Dx: Justifications for Admission: Justification of Admission Dx: N/A NAVYA OCAMPO MD Sep 02, 2020 14:39
[2020-09-02] MEDS ORDERED: CALC200T23 PO (14:43)
[2020-09-02] MEDS ORDERED: LISI-517 PO (14:43)
[2020-09-02] MEDS ORDERED: ASPI-886 PO (14:43)
[2020-09-02] MEDS ORDERED: MAG30ORA2 PO (14:43)
[2020-09-02] MEDS ORDERED: PROC10TA57 PO (14:43)
[2020-09-02] MEDS ORDERED: ATOR40TA59 PO (14:43)
[2020-09-02] MEDS ORDERED: NITR0.4T24 SL (14:43)
[2020-09-02] MEDS ORDERED: MAGN400O7 PO (14:43)
--- NOTE | 2020-09-02 14:44 | DISCH ---
DISCHARGE INSTRUCTIONS Condition on Discharge Condition on Discharge: Stable Activity After Discharge Activity Instructions for Disc: Activity as tolerated Bathing Instructions: No Tub Bath until see Lifting Instructions after Dis: Do not lift >10 pounds Exercise Instruction after Dis: Progress as tolerated Driving Instructions after Dis: Do not drive today, Other, see below Weight Bearing Status after Di: No restrictions Diet after Discharge Diet after Discharge: Cardiac Diet Texture: Regular Liquid Texture: Thin Liquid Swallowing Supervision: None needed Wound Incision Care Wound/Incision Care: Change dressing Checks after Discharge Checks after discharge: Check blood press - daily Contacting the after DC Call your doctor for: If your condition worsens Follow-Up Follow up with: Dr. Lock October 26 at 10:30. [phone] Follow Up With: Stress test Wednesday 09/06 at 9AM [facility] outpatient registration Treatment/Equipment after DC Adaptive Equipment Issued: None NAVYA OCAMPO MD Sep 02, 2020 14:44
--- NOTE | 2020-09-02 16:21 | NUR ---
Discharge: Teaching verbal and written. Reviewed medication, follow-up, ECHO, stress test, labs, hypokalemia, cholesterol, TSH, cardiac diet, aspirin and heart health, ect. Patient verbalized understanding. Prescriptions sent to pharmacy by physician. All belongings with patient. Patient ambulated off of unit with [facility]
[2020-09-02] MEDS ORDERED: ATORVASTATIN CALCIUM 40 MG TABLET. PO SCH (21:00)
[2020-09-02] MEDS ORDERED: OMEGA-3 FATTY ACIDS/FISH OIL 1,000 MG CAPSULE. PO SCH (21:00)
[2020-09-03] MEDS ORDERED: FENOFIBRATE 54 MG TABLET. PO SCH (09:00)
== END 2020-09-02 15:15 | disposition home or self-care (01) ==
LOC: ER 17:05 → 2 NORTH 19:00
PROVIDERS: ADMIT Family Medicine; ATTEND Family Medicine
DX: I20.0 Unstable angina (principal); E87.6 Hypokalemia; E83.42 Hypomagnesemia; I10 Essential (primary) hypertension; E78.5 Hyperlipidemia, unspecified; R07.89 Other chest pain; E26.9 Hyperaldosteronism, unspecified; F41.9 Anxiety disorder, unspecified; F32.9 Major depressive disorder, single episode, unspecified; E03.9 Hypothyroidism, unspecified; E78.00 Pure hypercholesterolemia, unspecified; K63.9 Disease of intestine, unspecified; M43.00 Spondylolysis, site unspecified; N83.201 Unspecified ovarian cyst, right side; N83.202 Unspecified ovarian cyst, left side; Z79.899 Other long term (current) drug therapy; Z85.038 Personal history of other malignant neoplasm of large intestine; Z87.891 Personal history of nicotine dependence; Z90.49 Acquired absence of other specified parts of digestive tract; Z98.51 Tubal ligation status; Z98.890 Other specified postprocedural states; Z79.82 Long term (current) use of aspirin
CPT/HCPCS: 36415; 71045; 80048; 80053; 80061; 81001; 83690; 83735; 83880; 84443; 84484; 85025; 93005; 93306; 96365; 96366; 96372; 96375; 96376; 99285; G0378; J0780; J1170; J1644; J2405; J3010; J3475; G0379

== ENCOUNTER → 2020-09-09 | Outpatient (CLI) | payer OTHER ==
[2020-09-02 11:00] VITALS: BP 140/81
[~2020-09-09] MED LIST changes: +ASPI-886 PO; +ATOR40TA59 PO; +CALC200T23 PO; +LISI-517 PO; +MAG30ORA2 PO; +MAGN400O7 PO; +NITR0.4T24 SL; +PROC10TA57 PO
[2020-09-09 09:46] LABS: BASO # 0.1 x10^3/uL (0.0-0.2); BASO % 1 % (0-3); EOS # 0.2 x10^3/uL (0.0-0.7); EOS % 3 % (0-3); HEMATOCRIT 39.2 % (36.0-47.0); HEMOGLOBIN 13.4 g/dL (12.0-15.5); LYMPH # 2.3 x10^3/uL (1.0-4.8); LYMPH % 35 % (24-48); MEAN CORPUSCULAR HEMOGLOBIN 31 pg (25-35); MEAN CORPUSCULAR HGB CONC 34 g/dL (31-37); MEAN CORPUSCULAR VOLUME 90 fL (79-100); MONO # 0.5 x10^3/uL (0.0-1.1); MONO % 8 % (0-9); NEUT # 3.7 x10^3/uL (1.8-7.7); NEUT % 54 % (31-73); PLATELET COUNT 272 x10^3/uL (140-400); RED BLOOD COUNT 4.38 x10^6/uL (3.50-5.40); RED CELL DISTRIBUTION WIDTH 13.3 % (11.5-14.5); WHITE BLOOD COUNT 6.8 x10^3/uL (4.0-11.0)
[2020-09-09 09:49] LABS: MAGNESIUM 2.1 mg/dL (1.8-2.4); PHOSPHORUS 4.1 mg/dL (2.6-4.7)
[2020-09-09 09:51] LABS: CHOLESTEROL/HDL RATIO 3.7
[2020-09-10 00:08] LABS: HEMOGLOBIN A1C 5.6 % (4.8-5.6)
== END ==
LOC: LAB 08:53
PROVIDERS: ATTEND Nurse Practitioner Family
DX: Z13.1 Encounter for screening for diabetes mellitus (principal); E03.9 Hypothyroidism, unspecified; I10 Essential (primary) hypertension; E87.1 Hypo-osmolality and hyponatremia
CPT/HCPCS: 36415; 80061; 82150; 83036; 83690; 83735; 84100; 84443; 85025

== ENCOUNTER 2021-04-19 10:12 | Emergency (ER) | payer OTHER ==
[~2021-04-19] VITALS: Ht 157.5 cm; Wt 67.8 kg
[~2021-04-19 10:12] MED LIST changes: -LISI-517 PO; +LISI5TAB15 PO
[2021-04-19 10:26] VITALS: BP 121/62
--- NOTE | 2021-04-19 11:00 | PHYS DOC ---
Past Medical History Past Medical History: Cancer, High Cholesterol, Hypertension Additional Past Medical Histor: colon CA, short gut syndrome, hyperaldosteronism Past Surgical History: Cholecystectomy, Tubal ligation Additional Past Surgical Histo: Liver and colon resection, colostomy with reversal; hernia Smoking Status: Former Smoker Alcohol Use: None Drug Use: None General Adult EDM: Chief Complaint: WEAKNESS/GENERALIZED HPI: HPI: Patient is a 60-year-old female that presents today with generalized leg weakness that has been going on for about 1 week. 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 Patient states she did have some episodes of nausea this morning but has not vomited. Patient states that she normally has on the average 6 diarrhea stools on a daily basis due to her short gut syndrome. Patient denies chest pain, shortness of air, cough, or fever and chills. Review of Systems: Review of Systems: Constitutional: Denies fever or chills. [] Eyes: Denies change in visual acuity. [] HENT: Denies nasal congestion or sore throat. [] Respiratory: Denies cough or shortness of breath. [] Cardiovascular: Denies chest pain or edema. [] GI: Denies abdominal pain, nausea, vomiting, bloody stools or diarrhea. [] : Denies dysuria. [] Musculoskeletal: Generalized leg weakness Integument: Denies rash. [] Neurologic: Denies headache, focal weakness or sensory changes. [] Endocrine: Denies polyuria or polydipsia. [] Lymphatic: Denies swollen glands. [] Psychiatric: Denies depression or anxiety. [] Heart Score: C/O Chest Pain: N/A Risk Factors: Risk Factors: DM, Current or recent (<one month) smoker, HTN, HLP, family history of CAD, obesity. Risk Scores: Score 0 - 3: 2.5% MACE over next 6 weeks - Discharge Home Score 4 - 6: 20.3% MACE over next 6 weeks - Admit for Clinical Observation Score 7 - 10: 72.7% MACE over next 6 weeks - Early Invasive Strategies Allergies: Allergies: Allergies Coded Allergies Type Severity Reaction Last Updated Verified morphine Allergy Intermediate Itching 04/19/21 Yes Physical Exam: PE: Constitutional: Well developed, well nourished, no acute distress, non-toxic appearance. [] HENT: Normocephalic, atraumatic, bilateral external ears normal, oropharynx moist, no oral exudates, nose normal. [] Eyes: PERRLA, EOMI, conjunctiva normal, no discharge. [] Neck: Normal range of motion, no tenderness, supple, no stridor. [] Cardiovascular:Heart rate regular rhythm, no murmur [] Lungs & Thorax: Bilateral breath sounds clear to auscultation [] Abdomen: Bowel sounds normal, soft, no tenderness, no masses, no pulsatile masses. [] Skin: Warm, dry, no erythema, no rash. [] Back: No tenderness, no CVA tenderness. [] Extremities: No tenderness, no cyanosis, no clubbing, ROM intact, no edema. [] Neurologic: Alert and oriented X 3, normal motor function, normal sensory function, no focal deficits noted. [] Psychologic: Affect normal, judgement normal, mood normal. [] Current Patient Data: Labs: Laboratory Tests Test 04/19/21 10:35 04/19/21 11:05 Urine Collection Type Unknown Urine Color Yellow Urine Clarity Clear Urine pH 5.5 Urine Specific [place] 1.015 Urine Protein Negative mg/dL Urine Glucose (UA) Negative mg/dL Urine Ketones (Stick) Negative mg/dL Urine Blood Negative Urine Nitrite Negative Urine Bilirubin Negative Urine Urobilinogen Dipstick 0.2 mg/dL Urine Leukocyte Esterase Negative Urine RBC 0 /HPF Urine WBC 0 /HPF Urine Squamous Epithelial Cells Occ /LPF Urine Bacteria 0 /HPF Urine Mucus Slight /LPF White Blood Count 5.9 x10^3/uL Red Blood Count 4.00 x10^6/uL Hemoglobin 11.7 g/dL Hematocrit 35.5 % Mean Corpuscular Volume 89 fL Mean Corpuscular Hemoglobin 29 pg Mean Corpuscular Hemoglobin Concent 33 g/dL Red Cell Distribution Width 13.0 % Platelet Count 234 x10^3/uL Neutrophils (%) (Auto) 51 % Lymphocytes (%) (Auto) 38 % Monocytes (%) (Auto) 7 % Eosinophils (%) (Auto) 3 % Basophils (%) (Auto) 1 % Neutrophils # (Auto) 3.0 x10^3/uL Lymphocytes # (Auto) 2.2 x10^3/uL Monocytes # (Auto) 0.4 x10^3/uL Eosinophils # (Auto) 0.2 x10^3/uL Basophils # (Auto) 0.1 x10^3/uL Sodium Level 142 mmol/L Potassium Level 4.6 mmol/L Chloride Level 106 mmol/L Carbon Dioxide Level 28 mmol/L Anion Gap 8 Blood Urea Nitrogen 12 mg/dL Creatinine 0.9 mg/dL Estimated GFR (Cockcroft-Gault) 64.1 BUN/Creatinine Ratio 13 Glucose Level 102 mg/dL Calcium Level 8.4 mg/dL Total Bilirubin 0.3 mg/dL Aspartate Amino Transf (AST/SGOT) 25 U/L Alanine Aminotransferase (ALT/SGPT) 38 U/L Alkaline Phosphatase 74 U/L Total Protein 7.5 g/dL Albumin 3.8 g/dL Albumin/Globulin Ratio 1.0 Vital Signs: Vital Signs Date Time Temp Pulse Resp B/P (MAP) Pulse Ox O2 Delivery O2 Flow Rate FiO2 04/19/21 10:26 98.3 70 20 121/62 (81) 97 Room Air 98.3 Vital Signs Date Time Temp Pulse Resp B/P (MAP) Pulse Ox O2 Delivery O2 Flow Rate FiO2 04/19/21 10:26 98.3 70 20 121/62 (81) 97 Room Air 98.3 EKG: EKG: [] Radiology/Procedures: Radiology/Procedures: [] Course & Med Decision Making: Course & Med Decision Making Pertinent Labs and Imaging studies reviewed. (See chart for details) 1140 reviewed laboratory results with patient did inform her that no acute findings were found on her laboratory results. Not sure what is causing her generalized weakness but she states she has an appointment with her oncologist tomorrow and she will discuss this concern with her. Patient verbalizes under standing and is agreeable to the plan of care of going home and managing this on an outpatient basis. [place]esham Disclaimer: Hesham Disclaimer: This electronic medical record was generated, in whole or in part, using a voice recognition dictation system. Departure Departure Impression: Primary Impression: Generalized weakness Disposition: HOME / SELF CARE / HOMELESS Condition: STABLE Referrals: LISA DICKERSON [facility] (PCP) Patient Instructions: Weakness Additional Instructions: Follow-up with your oncologist in the a.m. as previously scheduled. LIZ HOOVER APRN Apr 19, 2021 11:00
[2021-04-19 11:14] LABS: BILIRUBIN,URINE NEGATIVE (NEG); CLARITY,URINE CLEAR; COLOR,URINE YELLOW; NITRITE,URINE NEGATIVE (NEG); PH,URINE 5.5 (<5.0-8.0); PROTEIN,URINE NEGATIVE (NEG-TRACE); UROBILINOGEN,URINE 0.2 mg/dL (0.2 mg/dL)
[2021-04-19 11:15] LABS: BASO # 0.1 x10^3/uL (0.0-0.2); BASO % 1 % (0-3); EOS # 0.2 x10^3/uL (0.0-0.7); EOS % 3 % (0-3); HEMATOCRIT 35.5 % (36.0-47.0); HEMOGLOBIN 11.7 g/dL (12.0-15.5); LYMPH # 2.2 x10^3/uL (1.0-4.8); LYMPH % 38 % (24-48); MEAN CORPUSCULAR HEMOGLOBIN 29 pg (25-35); MEAN CORPUSCULAR HGB CONC 33 g/dL (31-37); MEAN CORPUSCULAR VOLUME 89 fL (79-100); MONO # 0.4 x10^3/uL (0.0-1.1); MONO % 7 % (0-9); NEUT % 51 % (31-73); PLATELET COUNT 234 x10^3/uL (140-400); WHITE BLOOD COUNT 5.9 x10^3/uL (4.0-11.0)
[2021-04-19 11:19] LABS: BACTERIA,URINE 0 /HPF (0-FEW); RBC,URINE 0 /HPF (0-2); WBC,URINE 0 /HPF (0-4)
[2021-04-19 11:27] LABS: CALCIUM 8.4 mg/dL (8.5-10.1); CREATININE 0.9 mg/dL (0.6-1.0); GFR 64.1; POTASSIUM 4.6 mmol/L (3.5-5.1)
[2021-04-19 11:33] LABS: ALBUMIN 3.8 g/dL (3.4-5.0); TOTAL BILIRUBIN 0.3 mg/dL (0.2-1.0); TOTAL PROTEIN 7.5 g/dL (6.4-8.2)
== END 2021-04-19 12:06 | disposition home or self-care (01) ==
LOC: ER 10:12
DX: R53.1 Weakness (principal); R11.0 Nausea; R19.7 Diarrhea, unspecified; E78.00 Pure hypercholesterolemia, unspecified; I10 Essential (primary) hypertension; Z85.038 Personal history of other malignant neoplasm of large intestine; Z88.5 Allergy status to narcotic agent
CPT/HCPCS: 36415; 80053; 81001; 85025; 99283

== ENCOUNTER → 2021-04-20 | Outpatient (CLI) | payer OTHER ==
[2021-04-19 10:26] VITALS: BP 121/62
[2021-04-20 11:22] LABS: BASO # 0.1 x10^3/uL (0.0-0.2); BASO % 1 % (0-3); EOS # 0.2 x10^3/uL (0.0-0.7); EOS % 3 % (0-3); HEMATOCRIT 36.8 % (36.0-47.0); HEMOGLOBIN 12.5 g/dL (12.0-15.5); LYMPH % 35 % (24-48); MEAN CORPUSCULAR HEMOGLOBIN 30 pg (25-35); MEAN CORPUSCULAR HGB CONC 34 g/dL (31-37); MEAN CORPUSCULAR VOLUME 89 fL (79-100); MONO # 0.3 x10^3/uL (0.0-1.1); MONO % 6 % (0-9); NEUT % 55 % (31-73); PLATELET COUNT 234 x10^3/uL (140-400); RED BLOOD COUNT 4.15 x10^6/uL (3.50-5.40); RED CELL DISTRIBUTION WIDTH 13.3 % (11.5-14.5); WHITE BLOOD COUNT 5.6 x10^3/uL (4.0-11.0)
[2021-04-20 11:33] LABS: CALCIUM 8.6 mg/dL (8.5-10.1); CREATININE 0.9 mg/dL (0.6-1.0); GFR 63.9; POTASSIUM 3.9 mmol/L (3.5-5.1)
[2021-04-20 11:39] LABS: ALBUMIN 3.8 g/dL (3.4-5.0); TOTAL BILIRUBIN 0.3 mg/dL (0.2-1.0); TOTAL PROTEIN 7.5 g/dL (6.4-8.2)
== END ==
LOC: ONCLAB 11:03
PROVIDERS: ATTEND Internal Medicine Hematology & Oncology
DX: Z85.038 Personal history of other malignant neoplasm of large intestine (principal)
CPT/HCPCS: 36415; 80053; 82378; 85025